=== PATIENT | male | born 1930 | race Caucasian/White ===

== ENCOUNTER 2017-03-27 16:57 | Inpatient (IN) ==
[2017-03-27 17:55] LABS: Basophils % 0.2 %; Eosinophils % 1.4 %; Mean Corpuscular HGB Conc 29.8 g/dL (31.6-35.5); Mean Platelet Volume 10.2 fL (9.4-12.4)
[2017-03-27 17:56] LABS: Eosinophils # 0.1 K/mcL (0.0-0.6); Hematocrit 18.1 % (37.5-50.1); Lymphocytes # 1.3 K/mcL (0.6-4.6); Lymphocytes % 13.4 %; Mean Corpuscular Hemoglobin 29.5 pg (28.0-33.3); Mean Corpuscular Volume 98.9 fL (83.0-100.0); Monocytes # 0.5 K/mcL (0.0-1.3); Neutrophils # 7.7 K/mcL (1.6-8.9); Nucleated Red Blood Cells 0.3 /100 WBC (0); Platelet Count 147 K/mcL (140-400); Red Blood Count 1.83 M/mcL (4.19-5.50); Red Cell Distribution Width 23.9 % (11.5-14.5)
[2017-03-27 17:58] LABS: Activated Partial Thrombo Time 46.9 Seconds (26.0-36.0)
[2017-03-27 18:04] LABS: Potassium 4.6 mEq/L (3.5-4.5)
[2017-03-27 18:09] LABS: INR 4.6; Prothrombin Time 51.2 Seconds (9.4-12.1)
[2017-03-27 18:10] LABS: Hemoglobin 5.4 g/dL (12.9-16.9)
[2017-03-27 18:33] LABS: Anisocytosis 2+ (Not Present); Hypochromasia Present (Not Present); Ovalocytes 1+ (Not Present); Platelet Estimate Normal (Normal)
[2017-03-27] MEDS ORDERED: Pantoprazole 40 MG VIAL IVP ONE (18:34)
--- NOTE | 2017-03-27 18:56 | Emergency Department Note ---
Disposition Clinical Impression: GI bleeding, Melena, Anemia Disposition: Admitted As Inpatient Condition: Fair [facility] Care Provider[facility] - Time of Disposition: 18:45 GI Bleed HPI - General Chief complaint: ED GI Bleed Stated complaint: Lower GI Time Seen by Provider: 03/27/17 17:03 Source: EMS Mode of arrival: EMS Limitations: no limitations Nursing Notes Reviewed: Yes Vital Signs Reviewed: Yes - History of Present Illness HPI Narrative: 87-year-old male brought to the emergency department from the [facility] for concerns of GI bleeding. Patient states he has had dark, tarry stools for the past week and a half. Patient states he felt lightheaded over the past 24 hours, falling twice yesterday but denies syncope or chest pain. CT of the head was negative at the [facility] for acute fracture or intracranial hemorrhage. Patient had occult positive stool CVA. His hemoglobin was 5.7. Last bowel movement was yesterday and was formed. No history of peptic ulcer disease in the past. Patient takes Coumadin for atrial fibrillation and had an elevated INR of 4.7. - Related Data Home Medications Medication Instructions Recorded Confirmed Hydrocodone/Acetaminophen [[place] 1 tab PO Q6H PRN 03/26/15 02/22/17 5-325 Tablet] Ketoconazole 2% CRM [Nizoral Cream] 1 appl TP BID 03/26/15 02/22/17 Melatonin 3 mg PO HS PRN 03/26/15 02/22/17 Multivitamin [Multi-Day Vitamins] 1 tab PO BID 03/26/15 02/22/17 Omeprazole [PriLOSEC] 20 mg PO DAILY 03/26/15 02/22/17 Terazosin [Hytrin] 5 mg PO HS 03/26/15 02/22/17 TraZODone 100 mg PO HS 03/26/15 02/22/17 Venlafaxine [Effexor] 37.5 mg PO DAILY 03/26/15 02/22/17 Warfarin [Coumadin] 2.5 mg PO SUTUTH 03/26/15 02/22/17 Warfarin [Coumadin] 5 mg PO MOWEFRSA 03/26/15 02/22/17 Allopurinol [Zyloprim 100 MG] 200 mg PO DAILY 02/21/17 02/22/17 Carvedilol [Coreg] 6.25 mg PO BID 02/21/17 02/22/17 Cetirizine HCl [All Day Allergy] 5 mg PO DAILY PRN 02/21/17 02/22/17 Cholecalciferol (D-3) [Vitamin D] 1,000 unit PO DAILY 02/21/17 02/22/17 Dextran 70/Hypromellose 1 drop BOTH EYES DAILY 02/21/17 02/22/17 [Artificial Tears] Docusate [Colace] 100 mg PO BID PRN 02/21/17 02/22/17 Finasteride [Proscar] 5 mg PO DAILY 02/21/17 02/22/17 Furosemide [Lasix] 40 mg PO BID 02/21/17 02/22/17 Gabapentin [Neurontin] 300 mg PO BID 02/21/17 02/22/17 Gabapentin [Neurontin] 600 mg PO HS 02/21/17 02/22/17 Petrolatum,White [Aloe [place]] 1 appl TP TID 02/21/17 02/22/17 Spironolactone [Aldactone] 12.5 mg PO DAILY 02/21/17 02/22/17 Leuprolide Acetate [Lupron Depot] 22.5 mg IM Q3M 02/22/17 02/22/17 Meclizine HCl [Verticalm] 25 mg PO TID PRN 02/22/17 02/22/17 Previous Rx's Medication Instructions Recorded Ipratropium/Albuterol Sulfate 4 gm IH QID #1 aer.w.adap 02/26/17 [Combivent Respimat Inhal [place]] Allergies Allergy/AdvReac Type Severity Reaction Status Date / Time Sulfa (Sulfonamide Allergy Rash Verified 02/21/17 21:52 Antibiotics) All systems ED: reviewed and negative except as stated. Review of Systems: As Per HPI Constitutional: Denies: fever, chills, weakness Cardiovascular: Denies: chest pain, palpitations, dyspnea on exertion Respiratory: Denies: cough, dyspnea, wheezes Gastrointestinal: Reports: melena. Denies: abdominal pain, nausea, vomiting Past Medical History - Past Medical History Attestation: Yes The following information was validated with the patient. Source: patient Medical history: Reports: arthritis, atrial fibrillation, CHF, COPD, GERD, hyperlipidemia, hypertension, malignancy, other Psychiatric history: Reports: anxiety, depression - Social History Smoking Status: Never smoker Smokeless Tobacco Status: No Alcohol use: Reports: occasionally Drug use: Reports: none Physical Exam General: Alert and in no acute distress Skin: Warm, dry, intact Head: Normocephalic and atraumatic Neck: Supple, trachea midline and no tenderness Cardiovascular: RRR, no murmur, normal perfusion Respiratory: CTAB, no wheezing, cough, or respiratory distress Musculoskeletal: Normal strength, no tenderness, swelling or deformity GI: Soft, nontender, nondistended. Bowel sounds present Rectal exam per [facility] chart shows occult positive stool with melena. Neuro: A&O to person, place, time and situation. No focal deficits noted on exam Psychiatric: cooperative and appropriate mood and affect. - General General appearance: alert Course Vital Signs Temperature 97.6 F 03/27/17 17:02 Pulse Rate 86 03/27/17 17:02 Respiratory Rate 20 03/27/17 17:02 Blood Pressure 147/67 03/27/17 17:02 O2 Sat by Pulse Oximetry 94 03/27/17 17:02 Temperature 97.6 F 03/27/17 17:02 Pulse Rate 86 03/27/17 17:02 Respiratory Rate 20 03/27/17 17:02 Blood Pressure 147/67 03/27/17 17:02 O2 Sat by Pulse Oximetry 94 03/27/17 17:02 Oxygen Delivery Oxygen Delivery Room Air GI Bleed - MDM Narrative Medical decision making narrative: Patient vital signs are stable in the emergency department. Patient is likely stable for a bed in a stepdown unit. Patient given Protonix in the emergency department. Patient admitted for further care and evaluation. 3 units of packed red blood cells are ordered for transfusion. - Medical Records Medical records reviewed: Yes I reviewed the patient's medical records. - Lab Data Lab results reviewed: Yes I reviewed the patient's lab results. Result diagrams: 03/27/17 17:45 03/27/17 17:45 Lab Results 03/27/17 03/27/17 03/27/17 Range/Units 17:45 17:45 17:45 WBC 9.7 (4.3-11.1) K/mcL RBC 1.83 L (4.19-5.50) M/mcL Hgb 5.4 L* (12.9-16.9) g/dL Hct 18.1 L (37.5-50.1) % MCV 98.9 D (83.0-100.0) fL MCH 29.5 (28.0-33.3) pg MCHC 29.8 L (31.6-35.5) g/dL RDW 23.9 H (11.5-14.5) % Plt Count 147 (140-400) K/mcL MPV 10.2 (9.4-12.4) fL Immature Gran % 1.0 (0-4) % Seg Neutrophils % 79.0 % Lymphocytes % 13.4 % Monocytes % 5.0 % Eosinophils % 1.4 % Basophils % 0.2 % Neutrophils # 7.7 (1.6-8.9) K/mcL Lymphocytes # 1.3 (0.6-4.6) K/mcL Monocytes # 0.5 (0.0-1.3) K/mcL Eosinophils # 0.1 (0.0-0.6) K/mcL Basophils # 0.0 (0.0-0.2) K/mcL Nucleated RBCs/100 WBC 0.3 H (0) /100 WBC Platelet Estimate Normal (Normal) Hypochromasia Present A (Not Present) Anisocytosis 2+ A (Not Present) Ovalocytes 1+ A (Not Present) PT 51.2 H* (9.4-12.1) Seconds INR 4.6 H* APTT 46.9 H (26.0-36.0) Seconds Sodium 147 H (136-145) mEq/L Potassium 4.6 H (3.5-4.5) mEq/L Chloride 103 (98-109) mEq/L Carbon Dioxide 38 H (19-29) mEq/L BUN 90 H (8-26) mg/dL Creatinine 1.98 H (0.72-1.25) mg/dL Est GFR ( Amer) 39 L (> 60) Est GFR (Non-Af Amer) 32 L (> 60) BUN/Creatinine Ratio 45 H (6-26) Glucose 132 H (70-99) mg/dL Calculated Osmolality 333 H (280-300) Calcium 9.0 (8.6-10.8) mg/dL Lipase 44 (8-78) Units/L Blood Type Antibody Screen Crossmatch 03/27/17 Range/Units 17:45 WBC (4.3-11.1) K/mcL RBC (4.19-5.50) M/mcL Hgb (12.9-16.9) g/dL Hct (37.5-50.1) % MCV (83.0-100.0) fL MCH (28.0-33.3) pg MCHC (31.6-35.5) g/dL RDW (11.5-14.5) % Plt Count (140-400) K/mcL MPV (9.4-12.4) fL Immature Gran % (0-4) % Seg Neutrophils % % Lymphocytes % % Monocytes % % Eosinophils % % Basophils % % Neutrophils # (1.6-8.9) K/mcL Lymphocytes # (0.6-4.6) K/mcL Monocytes # (0.0-1.3) K/mcL Eosinophils # (0.0-0.6) K/mcL Basophils # (0.0-0.2) K/mcL Nucleated RBCs/100 WBC (0) /100 WBC Platelet Estimate (Normal) Hypochromasia (Not Present) Anisocytosis (Not Present) Ovalocytes (Not Present) PT (9.4-12.1) Seconds INR APTT (26.0-36.0) Seconds Sodium (136-145) mEq/L Potassium (3.5-4.5) mEq/L Chloride (98-109) mEq/L Carbon Dioxide (19-29) mEq/L BUN (8-26) mg/dL Creatinine (0.72-1.25) mg/dL Est GFR ( Amer) (> 60) Est GFR (Non-Af Amer) (> 60) BUN/Creatinine Ratio (6-26) Glucose (70-99) mg/dL Calculated Osmolality (280-300) Calcium (8.6-10.8) mg/dL Lipase (8-78) Units/L Blood Type A POSITIVE Antibody Screen NEGATIVE Crossmatch See Detail - Radiology Data Radiology results reviewed: Yes I reviewed the patient's radiology results. - EKG Data EKG attestation: Yes I reviewed and interpreted this EKG. EKG results narrative: 87 atrial fibrillation with PVC without evidence of STEMI.
[2017-03-27] MEDS: Pantoprazole 40 MG in 0.9 % Sodium Chloride Mini Bag 100 ML IVC SCH (18:59)
--- NOTE | 2017-03-27 19:37 | Internal Med History&Physical ---
<Mic Bermudez - Last Filed: 03/28/17 02:04> Date of Encounter: 03/27/17 Time of Encounter: 19:37 Assessment and Plan (1) Acute blood loss anemia Current visit: Yes Status: Acute HGB 5.7 --> 5.4 Patient currently receiving 3 units PRBC, FFP, Vitamin K Repeat H&H q6h 2 large bore IVs in place CT abd/plv today at the [facility] revealed no retroperitoneal hematoma Continue blood products prn Monitor vital signs Monitor for signs of fluid overload due to underlying CHF (2) Melena Current visit: Yes Status: Acute Black tarry stool for 5 days FFP, Vit K given to reverse Coumadin He reports last colonoscopy was normal 1 year ago andis unable to remember the results from his previous EGD. Records requested from [facility] GI consulted (3) Bleeding on Coumadin Current visit: Yes Status: Acute Supratherapeutic INR 4.6 Hold Coumadin due to GI bleed Vit K and FFP given Repeat INR in AM (4) Afib Current visit: No Status: Chronic CHADS-VASc Score 4 ATRIA Bleeding Risk Score 9 indicating 5.8% Annual Risk of Hemorrhage on Coumadin Discuss with patient the high risk of bleeding from frequent falls while taking Coumadin vs benefits of further anticoagulation to prevent thromboembolism Alternatives to or stopping warfarin should be strongly considered Qualifiers: Atrial fibrillation type: permanent Qualified Code(s): I48.2 - Chronic atrial fibrillation (5) Falls frequently Current visit: Yes Status: Acute Discuss with patient the risks of bleeding from frequent falls while taking Coumadin vs benefits of further anticoagulation to prevent thromboembolism PT/OT consulted (6) CHF (congestive heart failure) Current visit: Yes Status: Chronic BNP 2641 on 03/16/17 CXR revealed continued basilar airspace disease, mainly on the right, decreased when compared to the previous exam, atelectasis versus pneumonia versus edema. CT abd/plv today at the [facility] revealed bilateral pleural effusions, with dependent consolidating at the right lung base, cardiomegaly with small pericardial effusion, and findings suggestive of cirrhosis Echo pending Repeat BNP pending Lasix 40mg BID IV Monitor for signs of fluid overload COntinue blood products prn Continue home meds Qualifiers: Congestive heart failure type: unspecified congestive heart failure type Congestive heart failure chronicity: chronic Qualified Code(s): I50.9 - Heart failure, unspecified (7) Chronic respiratory failure with hypoxia Current visit: No Status: Chronic Patient wears 3L continuous home O2 (8) COPD (chronic obstructive pulmonary disease) Current visit: No Status: Chronic Patient wears 3L continuous home O2 Continue home meds Qualifiers: COPD type: unspecified COPD Qualified Code(s): J44.9 - Chronic obstructive pulmonary disease, unspecified (9) HTN (hypertension) Current visit: Yes Status: Chronic Continue home meds Qualifiers: Hypertension type: unspecified Qualified Code(s): I10 - Essential (primary ) hypertension (10) CKD (chronic kidney disease) stage 3, GFR 30-59 ml/min Current visit: No Status: Chronic Continue to monitor Gentle hydration given h/o CHF (11) Prostate ca Current visit: No Status: Chronic Continue to monitor (12) DVT prophylaxis Current visit: Yes Status: Acute SCDs Internal Medicine - H&P: HPI Chief complaint: Black stool Admitted From: Home History of present illness: Mr. Neumann is a 87 year old male with a PMH of atrial fibrillation on Coumadin, CHF, COPD with home O2 dependence, GERD, hypertension, and prostate cancer [facility] H[facility] 5.7 and black tarry stools for the past 5 days. Patient also reports feeling weak, lightheaded, and having increased falls at home for the past 3 days. Patient reports mild SOB, leg edema, positive stool occult blood test in the ED, and an elevated INR of 4.7 today. He reports last colonoscopy was normal 1 year ago andis unable to remember the results from his previous EGD. CT abd/plv today at the [facility] revealed bilateral pleural effusions, with dependent consolidating at the right lung base, cardiomegaly with small pericardial effusion, and findings suggestive of cirrhosis. CT brain was negative. Patient denies fever, chills, CP, cough, abd pain, N/V/D/C, BRBPR, worsening leg edema, or previous blood transfusions Past Med Surg Social Fam HX - Past Medical History Medical history: arthritis, atrial fibrillation, CHF, COPD, GERD, hyperlipidemia , hypertension, malignancy, other Psychiatric history: anxiety, depression - Past Surgical History Surgical History: hip replacement (left), knee replacement (bilateral), orthopedic, other (back) - Social History Smoking Status: Never smoker Smokeless Tobacco Status: No Alcohol use: occasionally Drug use: none Current living situation: Home, With Family - Family History Mother Living Status: Hx Family Cardiac Disorders: Yes (AICD) Father Hx Family Cancer: Yes (Lung) Internal Medicine - H&P: Meds Hydrocodone/Acetaminophen [[place] 5-325 Tablet] 1 tab PO BID PRN 03/26/15 [ History] Ketoconazole 2% CRM [Nizoral Cream] 1 appl TP BID PRN 03/26/15 [History] Melatonin 3 mg PO HS 03/26/15 [History] Omeprazole [PriLOSEC] 20 mg PO HS 03/26/15 [History] Terazosin [Hytrin] 5 mg PO HS 03/26/15 [History] TraZODone 100 mg PO HS 03/26/15 [History] Allopurinol [Zyloprim 100 MG] 200 mg PO DAILY 02/21/17 [History] Carvedilol [Coreg] 6.25 mg PO BID 02/21/17 [History] Cholecalciferol (D-3) [Vitamin D] 1,000 unit PO DAILY 02/21/17 [History] Dextran 70/Hypromellose [Artificial Tears] 1 drop BOTH EYES DAILY PRN 02/21/17 [ History] Docusate [Colace] 100 mg PO BID PRN 02/21/17 [History] Furosemide [Lasix] 40 mg PO BID 02/21/17 [History] Gabapentin [Neurontin] 600 mg PO HS 02/21/17 [History] Petrolatum,White [Aloe [place]] 1 appl TP TID PRN 02/21/17 [History] Spironolactone [Aldactone] 12.5 mg PO DAILY 02/21/17 [History] Leuprolide Acetate [Lupron Depot] 22.5 mg IM [id number] 02/22/17 [History] Meclizine HCl [Verticalm] 25 mg PO TID PRN 02/22/17 [History] Acetaminophen [Tylenol] 1,000 mg PO BID PRN 03/27/17 [History] Ferrous Gluconate 324 mg PO BID 03/27/17 [History] Ipratropium/Albuterol Sulfate [Combivent Respimat Inhal [place]] 1 puff IH QID PRN 03/27/17 [History] Venlafaxine XR (24 HR) [Effexor XR] 37.5 mg PO DAILY 03/27/17 [History] Vit C/E/Zn/Coppr/Lutein/Zeaxan [Preservision [place] 2 Softgel] 1 cap PO BID 03/27 [History] Warfarin [Coumadin] 2.5 mg PO SUTUTH 03/27/17 [History] Warfarin [Coumadin] 5 mg PO MOWEFRSA 03/27/17 [History] 3 Allergy/AdvReac Type Severity Reaction Status Date / Time Sulfa (Sulfonamide Allergy Rash Verified 02/21/17 21:52 Antibiotics) All Systems PM: A 10-system review of systems was performed and is negative for pertinent findings except as documented above in the HPI. - Constitutional Constitutional: fatigue, falls, lethargy, weakness, no anorexia, no chills, no fever(s), no weight gain, no weight loss - EENT Eyes: no change in vision Nose, mouth and throat: no post-nasal drip - Cardiovascular Cardiovascular ROS IM: no chest pain, no palpitations - Respiratory Respiratory: dyspnea, no cough, no wheezing, no chest congestion, no excessive phlegm production - Gastrointestinal Gastrointestinal: melena, no abdominal pain, no bloating, no coffee ground emesis, no constipation, no cramping, no diarrhea, no hematemesis, no hematochezia, no vomiting - Genitourinary Genitourinary ROS male: no dysuria, no urinary frequency, no urinary urgency - Musculoskeletal Musculoskeletal ROS IM: no back pain, no limited range of motion, no numbness, no tingling - Integumentary Integumentary IM: new lesions, unusual bruising, no erythema, no rash - Neurological Neurological ROS: weakness, no confusion, no numbness, no tingling - Psychiatric Psychiatric: no anxiety, no depression - Endocrine Endocrine IM: no polydipsia, no polyphagia, no polyuria - Hematologic/Lymphatic Hematologic/Lymphatic: easy bruising, no easy bleeding - Constitutional Vitals: Temp Pulse Resp BP Pulse Ox 97.6 F 86 20 147/67 94 03/27/17 17:02 03/27/17 17:02 03/27/17 17:02 03/27/17 17:02 03/27/17 17:02 General appearance: Present: cooperative, A&O X 3, pleasant, no acute distress, answers questions appropriately Exam: pale, lethargic - Head Head exam: Present: atraumatic, normal inspection, normocephalic - Eye Eye exam: Present: EOMI, PERRL - ENT ENT exam: Present: mucous membranes dry, normal oropharynx - Neck Neck exam general surgery: Present: normal inspection, supple. Absent: tenderness - Respiratory Respiratory exam: Present: decreased breath sounds (bibasilar). Absent: rales, wheezes - Cardiovascular Cardiovascular exam: Present: irregular rhythm, +S1, +S2, systolic murmur - GI/Abdominal GI/Abdominal exam: Present: normal bowel sounds, soft. Absent: distended, guarding, tenderness - Extremities Exam Extremities exam: Present: full ROM, pedal edema (2+), warm. Absent: tenderness - Back Exam Back exam: Present: normal inspection. Absent: paraspinal tenderness, tenderness - Neurological Exam Neurological exam: Present: alert, oriented X3, speech deficit. Absent: no focal deficits - Psychiatric Psychiatric exam: Present: normal affect, normal mood - Skin Skin exam: Present: dry, pallor, warm Additional comments: 1x2cm black lesion left forearm, multiple ecchymosis bilateral upper extremities , no active bleeding - Expanded Skin Exam Type of lesion: Present: abrasion Internal Med - H&P Results - Labs CBC & Chem 7: 03/27/17 17:45 03/27/17 17:45 Labs: Short CBC 03/27/17 Range/Units 17:45 WBC 9.7 (4.3-11.1) K/mcL Hgb 5.4 L* (12.9-16.9) g/dL Hct 18.1 L (37.5-50.1) % Plt Count 147 (140-400) K/mcL Neutrophils # 7.7 (1.6-8.9) K/mcL BMP 03/27/17 17:45 Sodium 147 H Potassium 4.6 H Chloride 103 Carbon Dioxide 38 H BUN 90 H Creatinine 1.98 H Glucose 132 H Calcium 9.0 - EKG Data -: EKG Interpreted by Myself Rate: tachycardia (A-fib HR 87, with PVC, left axis deviation, no STEMI) - EKG Data Prior EKG available for review: yes When compared to previous EKG: there is no significant change - Impressions ITS Impressions CT abd/plv today at the [facility] revealed bilateral pleural effusions, with dependent consolidatin at the right lung base, cardiomegaly with small pericardial effusion, and findings suggestive of cirrhosis. CT brain was negative. Chest X-Ray 03/27/17 17:24 IMPRESSION: Continued basilar airspace disease, mainly on the right, decreased when compared to the previous exam, atelectasis versus pneumonia versus edema. D/ / Pepe Valadez MD / Pepe Valadez MD Interpreting Provider: Pepe Valadez MD <Benny Gilmore - Last Filed: 03/28/17 02:59> Date of Encounter: 03/27/17 Internal Medicine - H&P: HPI History of present illness: Mr. Neumann is a 87 year old male All Systems PM: A 10-system review of systems was performed and is negative for pertinent findings except as documented above in the HPI. - Constitutional Vitals: Temp Pulse Resp BP Pulse Ox 97.8 F 85 18 146/55 98 03/28/17 02:21 03/28/17 02:21 03/28/17 02:21 03/28/17 02:21 03/28/17 02:21 Internal Med - H&P Results - Labs CBC & Chem 7: 03/28/17 02:31 03/27/17 17:45 Labs: Short CBC 03/28/17 Range/Units 02:31 WBC 9.2 (4.3-11.1) K/mcL Hgb 6.3 L (12.9-16.9) g/dL Hct 20.2 L (37.5-50.1) % Plt Count 132 L (140-400) K/mcL Neutrophils # 7.1 (1.6-8.9) K/mcL - Attending Attestation I have independently and personally seen and examined the patient and discussed the plan was resident. Patient is presented with melena while he is on Coumadin. His INR is 4.7 and his hemoglobin is 5.4. We will reverse his INR with the help of FFP and vitamin K and plan to give him 3 units PRBC and repeat hemoglobin in the morning. GI consult will be obtained. Plan discussed with patient. Chest x-ray shows possible CHF therefore Lasix was started. There is some consolidation in the lungs therefore I will add Zosyn. Once CHF is resolved would recommend to repeat chest x-ray and see if there is any need for IV Zosyn.
[2017-03-27] MEDS ORDERED: 0.9 % Sodium Chloride 250 ML ONE ×2 (20:00→23:07)
[2017-03-27] MEDS ORDERED: Ondansetron 4 MG/2 ML VIAL IVP PRN (22:00)
[2017-03-27] MEDS ORDERED: Naloxone 0.4 MG/ML INJ IVP PRN (22:00)
[2017-03-27] MEDS ORDERED: *HR* HYDROcodone/Acet 5/325 mg TABLET PO PRN (22:06)
[2017-03-27] MEDS ORDERED: (Ipratropium/Albuterol Sulfate [Combivent Respimat In) IH PRN (22:06)
[2017-03-27] MEDS: traZODone 50 MG TABLET PO SCH (23:20)
[2017-03-28 02:42] LABS: Basophils % 0.2 %; Eosinophils # 0.2 K/mcL (0.0-0.6); Eosinophils % 2.3 %; Hematocrit 20.2 % (37.5-50.1); Hemoglobin 6.3 g/dL (12.9-16.9); Immature Granulocytes % 0.9 % (0-4); Lymphocytes # 1.3 K/mcL (0.6-4.6); Lymphocytes % 13.9 %; Mean Corpuscular HGB Conc 31.2 g/dL (31.6-35.5); Mean Corpuscular Hemoglobin 29.9 pg (28.0-33.3); Mean Corpuscular Volume 95.7 fL (83.0-100.0); Monocytes # 0.5 K/mcL (0.0-1.3); Monocytes % 5.4 %; Neutrophils # 7.1 K/mcL (1.6-8.9); Nucleated Red Blood Cells 0.3 /100 WBC (0); Platelet Count 132 K/mcL (140-400); Red Blood Count 2.11 M/mcL (4.19-5.50); Red Cell Distribution Width 22.6 % (11.5-14.5); Segmented Neutrophils % 77.3 %
[2017-03-28 02:54] LABS: Magnesium 2.3 mg/dL (1.6-2.6); Phosphorous 3.2 mg/dL (2.3-4.7)
[2017-03-28 02:55] LABS: INR 3.4; Prothrombin Time 37.7 Seconds (9.4-12.1)
[2017-03-28 02:57] LABS: Albumin 2.9 g/dL (3.5-5.0); Albumin/Globulin Ratio 1.1 (1.1-2.2); Bilirubin,Total 0.4 mg/dL (0.2-1.2); Calcium 8.8 mg/dL (8.6-10.8); Globulin 2.7 g/dL (2.4-3.5); Potassium 4.2 mEq/L (3.5-4.5); Total Protein 5.6 g/dL (6.0-8.3)
[2017-03-28 02:58] LABS: Activated Partial Thrombo Time 43.7 Seconds (26.0-36.0)
[2017-03-28] MEDS ORDERED: Piperacillin/Tazobactam 3.375 GM in D5% in Water (Mini-Bag+) 100 ML IVPB SCH (03:30)
[2017-03-28] MEDS ORDERED: 0.9 % Sodium Chloride 250 ML ONE ×3 (03:36→11:14)
[2017-03-28] MEDS: Pantoprazole 40 MG in 0.9 % Sodium Chloride Mini Bag 100 ML IVC SCH ×4 (06:12→20:33)
[2017-03-28] MEDS: Cholecalciferol (D-3) 1,000 UNIT TABLET PO SCH (08:30)
[2017-03-28] MEDS: Furosemide 40 MG/4 ML VIAL IVP SCH ×2 (08:30→20:35)
[2017-03-28] MEDS: Spironolactone 25 MG TABLET PO SCH (08:31)
[2017-03-28] MEDS: Venlafaxine XR (24 HR) 37.5 MG CAP.ER.24H PO SCH (08:31)
[2017-03-28] MEDS: (Vit C/E/Zn/Coppr/Lutein/Zeaxan [Preservision Areds 2) PO SCH (08:31)
[2017-03-28] MEDS ORDERED: Artificial Tears SOLN 15 ML BOTTLE BOTH EYES PRN (09:00)
[2017-03-28 12:14] LABS: Basophils % 0.1 %; Eosinophils # 0.1 K/mcL (0.0-0.6); Eosinophils % 1.6 %; Hematocrit 22.4 % (37.5-50.1); Hemoglobin 7.2 g/dL (12.9-16.9); Immature Granulocytes % 0.7 % (0-4); Immature Platelets 2.8 % (1.1-6.1); Lymphocytes # 1.1 K/mcL (0.6-4.6); Lymphocytes % 12.2 %; Mean Corpuscular HGB Conc 32.1 g/dL (31.6-35.5); Mean Corpuscular Hemoglobin 30.9 pg (28.0-33.3); Mean Corpuscular Volume 96.1 fL (83.0-100.0); Mean Platelet Volume 10.5 fL (9.4-12.4); Monocytes # 0.5 K/mcL (0.0-1.3); Monocytes % 5.5 %; Nucleated Red Blood Cells 0.3 /100 WBC (0); Platelet Count 148 K/mcL (140-400); Red Blood Count 2.33 M/mcL (4.19-5.50); Segmented Neutrophils % 79.9 %
[2017-03-28 12:42] LABS: Anisocytosis 2+ (Not Present); Hypochromasia Present (Not Present); Microcytosis Present (Not Present); Platelet Estimate Normal (Normal)
--- NOTE | 2017-03-28 13:16 | Internal Med Progress Note ---
Date of Encounter: 03/28/17 Time of Encounter: 13:10 - Assessment and plan (1) Acute blood loss anemia Current Visit: Yes Status: Acute Assessment and plan: Secondary to GI bleed s/p 3unit PRBC transfusion clinical reports of doing better compared previous day repeat H&H within acceptable range surgery consultation requested with Dr. Lai will continue IV PPI will closely monitor H&H repeat H&H this evening (2) Melena Current Visit: Yes Status: Acute Assessment and plan: plan as listed above awaiting INR reversal for any surgical intervention (3) Pneumonia Current Visit: Yes Status: Acute Assessment and plan: continue IV abx f/u blood cultures Qualifiers: Pneumonia type: due to unspecified organism Laterality: right Lung location: lower lobe of lung Qualified Code(s): J18.1 - Lobar pneumonia, unspecified organism (4) CHF (congestive heart failure) Current Visit: Yes Status: Chronic Assessment and plan: b/l pitting edema given the volume pt is receiving with blood transfusions (PrBC and FFP), will continue IV diuresis will closely monitor for volume overload Qualifiers: Congestive heart failure type: unspecified congestive heart failure type Congestive heart failure chronicity: chronic Qualified Code(s): I50.9 - Heart failure, unspecified (5) HTN (hypertension) Current Visit: Yes Status: Chronic Assessment and plan: BP within acceptable range continue to monitor Qualifiers: Hypertension type: unspecified Qualified Code(s): I10 - Essential (primary ) hypertension (6) Afib Current Visit: No Status: Chronic Assessment and plan: Rate controlled with Carvedilol holding anticoagulation due to GI bleed continue tele monitoring Qualifiers: Atrial fibrillation type: permanent Qualified Code(s): I48.2 - Chronic atrial fibrillation (7) CKD (chronic kidney disease) stage 3, GFR 30-59 ml/min Current Visit: No Status: Chronic Assessment and plan: Renal function at baseline continue to monitor (8) COPD (chronic obstructive pulmonary disease) Current Visit: No Status: Chronic Assessment and plan: not in acute exacerbation continue home meds Qualifiers: COPD type: unspecified COPD Qualified Code(s): J44.9 - Chronic obstructive pulmonary disease, unspecified (9) DVT prophylaxis Current Visit: Yes Status: Acute Assessment and plan: SCD - Subjective Interval history: Patient seen and examined with family present at bedside. Resting in chair and reports of feeling better compared to previous day. Reported of have one bowel movement this morning with black tarry stool. - Constitutional Vitals: Temp Pulse Resp BP Pulse Ox 97.6 F 72 18 146/66 98 03/28/17 11:34 03/28/17 11:34 03/28/17 11:34 03/28/17 11:34 03/28/17 11:34 General appearance: Present: cooperative, A&O X 3, pleasant, no acute distress, answers questions appropriately - Head Head exam: Present: atraumatic, normocephalic - Eye Eye exam: Present: conjuntiva pink, sclera anicteric - Respiratory Respiratory exam: Absent: accessory muscle use, rales, rhonchi, wheezes (coarse breath sounds) - Cardiovascular Cardiovascular exam: Present: RRR, +S1, +S2. Absent: diastolic murmur, gallop, rubs, systolic murmur - GI/Abdominal GI/Abdominal exam: Present: normal bowel sounds, soft, no peritoneal signs. Absent: distended, tenderness - Extremities Exam Extremities exam: Present: pedal edema, warm, radial pulses palpable and symmetrical. Absent: calf tenderness - Neurological Exam Neurological exam: Present: alert, oriented X3 - Psychiatric Psychiatric exam: Present: normal affect, normal mood Internal Medicine: Result - Labs CBC & Chem 7: 03/28/17 12:02 03/28/17 02:31 Labs: Short CBC 03/28/17 Range/Units 12:02 WBC 8.7 (4.3-11.1) K/mcL Hgb 7.2 L (12.9-16.9) g/dL Hct 22.4 L (37.5-50.1) % Plt Count 148 (140-400) K/mcL Neutrophils # 7.0 (1.6-8.9) K/mcL - ABG Interpretation ABG results: PT/INR, D-dimer PT 37.7 Seconds (9.4-12.1) H 03/28/17 02:31 Consult Discharge Plan - Plan [facility]errals[facility]Primary Care Provider[facility] -
--- NOTE | 2017-03-28 13:58 | General Surgery Consult Note ---
Date of Encounter: 03/28/17 Time of Encounter: 13:49 Assessment and Plan (1) Melena Current Visit: Yes Status: Acute I explained to the patient that given his history of fibrillation and supratherapeutic INR I do think that it is important that his INR be reversed before considering for a endoscopy procedure. I will continue to follow his INR and if it is less than 1.8 then I will consider performing an EGD tomorrow. I do not think he requires a colonoscopy due to the black tarry nature of his stool. Additionally, I will ask the staff to request a copy of the EGD and colonoscopy report from 2015. Discussed with the patient and he agrees to the above plan. History of Present Illness Consult date: 03/28/17 Reason for consult: other (Tarry stool) Requesting physician: Benny Gilmore History of present illness: The patient is an 87-year-old male with a past medical history significant for atrial fibrillation, hypertension, small cell carcinoma, and arthritis who presents to [facility] secondary to black tarry stools. He denies any abdominal pain and denies any nausea or vomiting. He denies any heartburn or reflux symptoms and states that he normally has a bowel movement once a day. Over the past week he has been having a bowel movement 2-3 times per day and has noted dark or black colored stools. He has not had any abdominal pain symptoms whatsoever. He states that his last EGD and colonoscopy was last year at the [facility] and I been asked to evaluate the patient for the possible need for a endoscopy procedure. Past Med Surg Social Fam HX - Past Medical History Medical history: arthritis, atrial fibrillation, CHF, COPD, GERD, hyperlipidemia , hypertension, malignancy, other Psychiatric history: anxiety, depression - Past Surgical History Surgical History: hip replacement (left), knee replacement (bilateral), orthopedic, other (back) - Social History Smoking Status: Never smoker Smokeless Tobacco Status: No Alcohol use: occasionally Drug use: none - Family History Mother Living Status: Hx Family Cardiac Disorders: Yes (AICD) Father Hx Family Cancer: Yes (Lung) Medications and Allergies Hydrocodone/Acetaminophen [[place] 5-325 Tablet] 1 tab PO BID PRN 03/26/15 [ History] Ketoconazole 2% CRM [Nizoral Cream] 1 appl TP BID PRN 03/26/15 [History] Melatonin 3 mg PO HS 03/26/15 [History] Omeprazole [PriLOSEC] 20 mg PO HS 03/26/15 [History] Terazosin [Hytrin] 5 mg PO HS 03/26/15 [History] TraZODone 100 mg PO HS 03/26/15 [History] Allopurinol [Zyloprim 100 MG] 200 mg PO DAILY 02/21/17 [History] Carvedilol [Coreg] 6.25 mg PO BID 02/21/17 [History] Cholecalciferol (D-3) [Vitamin D] 1,000 unit PO DAILY 02/21/17 [History] Dextran 70/Hypromellose [Artificial Tears] 1 drop BOTH EYES DAILY PRN 02/21/17 [ History] Docusate [Colace] 100 mg PO BID PRN 02/21/17 [History] Furosemide [Lasix] 40 mg PO BID 02/21/17 [History] Gabapentin [Neurontin] 600 mg PO HS 02/21/17 [History] Petrolatum,White [Aloe [place]] 1 appl TP TID PRN 02/21/17 [History] Spironolactone [Aldactone] 12.5 mg PO DAILY 02/21/17 [History] Leuprolide Acetate [Lupron Depot] 22.5 mg IM [id number] 02/22/17 [History] Meclizine HCl [Verticalm] 25 mg PO TID PRN 02/22/17 [History] Acetaminophen [Tylenol] 1,000 mg PO BID PRN 03/27/17 [History] Ferrous Gluconate 324 mg PO BID 03/27/17 [History] Ipratropium/Albuterol Sulfate [Combivent Respimat Inhal [place]] 1 puff IH QID PRN 03/27/17 [History] Venlafaxine XR (24 HR) [Effexor XR] 37.5 mg PO DAILY 03/27/17 [History] Vit C/E/Zn/Coppr/Lutein/Zeaxan [Preservision Areds 2 Softgel] 1 cap PO BID 03/27 [History] Warfarin [Coumadin] 2.5 mg PO SUTUTH 03/27/17 [History] Warfarin [Coumadin] 5 mg PO MOWEFRSA 03/27/17 [History] 3 Allergy/AdvReac Type Severity Reaction Status Date / Time Sulfa (Sulfonamide Allergy Rash Verified 02/21/17 21:52 Antibiotics) Review of Systems All systems PM: reviewed and no additional remarkable complaints except as stated All systems PM: A 10-system review of systems was performed and is negative for pertinent findings except as documented above in the HPI. General Surgery Exam Initial Vital Signs Temp Pulse Resp BP Pulse Ox 97.6 F 86 20 147/67 94 03/27/17 17:02 03/27/17 17:02 03/27/17 17:02 03/27/17 17:02 03/27/17 17:02 - Eyes PERRL, normal ocular movement - Respiratory normal expansion, normal respiratory effort - Cardiovascular Cardiovascular exam: Present: RRR, no murmurs/rubs/gallops - Abdomen Abdomen general surgery: Present: soft, non tender (obese, no pain with palpation) - Neurologic Present: CN 2-12 grossly intact - Psychiatric Psychiatric general surgery: Present: A&Ox3, oriented to person, oriented to place, oriented to time Exam Initial Vital Signs Temp Pulse Resp BP Pulse Ox 97.6 F 86 20 147/67 94 03/27/17 17:02 03/27/17 17:02 03/27/17 17:02 03/27/17 17:02 03/27/17 17:02 Results - Labs 03/29/17 06:39 03/29/17 06:39 Abnormal lab results RBC 2.33 M/mcL (4.19-5.50) L 03/28/17 12:02 Hgb 7.2 g/dL (12.9-16.9) L 03/28/17 12:02 Hct 22.4 % (37.5-50.1) L 03/28/17 12:02 RDW 22.0 % (11.5-14.5) H 03/28/17 12:02 Nucleated RBCs/100 WBC 0.3 /100 WBC (0) H 03/28/17 12:02 Hypochromasia Present (Not Present) A 03/28/17 12:02 Anisocytosis 2+ (Not Present) A 03/28/17 12:02 Microcytosis Present (Not Present) A 03/28/17 12:02 Ovalocytes 1+ (Not Present) A 03/27/17 17:45 PT 37.7 Seconds (9.4-12.1) H 03/28/17 02:31 APTT 43.7 Seconds (26.0-36.0) H 03/28/17 02:31 Sodium 148 mEq/L (136-145) H 03/28/17 02:31 Carbon Dioxide 39 mEq/L (19-29) H 03/28/17 02:31 BUN 82 mg/dL (8-26) H 03/28/17 02:31 Creatinine 1.85 mg/dL (0.72-1.25) H 03/28/17 02:31 Est GFR ( Amer) 42 (> 60) L 03/28/17 02:31 Est GFR (Non-Af Amer) 35 (> 60) L 03/28/17 02:31 BUN/Creatinine Ratio 44 (6-26) H 03/28/17 02:31 Glucose 110 mg/dL (70-99) H 03/28/17 02:31 Calculated Osmolality 331 (280-300) H 03/28/17 02:31 B-Natriuretic Peptide 182 pg/mL (0-100) H 03/27/17 17:45 Serum Total Protein 5.6 g/dL (6.0-8.3) L 03/28/17 02:31 Albumin 2.9 g/dL (3.5-5.0) L 03/28/17 02:31 All other labs normal. Consult Discharge Plan - Plan [facility]Primary Care Provider[facility] -
[2017-03-28] MEDS ORDERED: Ipratropium/Albuterol Neb 3 ML IH PRN (14:05)
[2017-03-28 17:45] LABS: Basophils % 0.1 %; Eosinophils # 0.2 K/mcL (0.0-0.6); Eosinophils % 1.7 %; Hematocrit 22.5 % (37.5-50.1); Hemoglobin 7.1 g/dL (12.9-16.9); Immature Granulocytes % 0.5 % (0-4); Lymphocytes # 1.3 K/mcL (0.6-4.6); Lymphocytes % 13.7 %; Mean Corpuscular HGB Conc 31.6 g/dL (31.6-35.5); Mean Corpuscular Hemoglobin 30.3 pg (28.0-33.3); Mean Corpuscular Volume 96.2 fL (83.0-100.0); Mean Platelet Volume 10.3 fL (9.4-12.4); Monocytes # 0.6 K/mcL (0.0-1.3); Monocytes % 6.2 %; Neutrophils # 7.4 K/mcL (1.6-8.9); Nucleated Red Blood Cells 0.2 /100 WBC (0); Platelet Count 136 K/mcL (140-400); Red Blood Count 2.34 M/mcL (4.19-5.50); Red Cell Distribution Width 21.8 % (11.5-14.5); Segmented Neutrophils % 77.8 %
[2017-03-28 17:54] LABS: INR 1.7
[2017-03-28 19:15] LABS: Hematocrit 22.7 % (37.5-50.1); Hemoglobin 7.1 g/dL (12.9-16.9)
[2017-03-28] MEDS: Gabapentin 300 MG CAPSULE PO SCH (20:34)
[2017-03-28] MEDS: traZODone 50 MG TABLET PO SCH (20:34)
[2017-03-28] MEDS: Melatonin 3 MG TABLET PO SCH (20:35)
[2017-03-28 23:09] LABS: Basophils % 0.1 %; Eosinophils # 0.2 K/mcL (0.0-0.6); Eosinophils % 2.4 %; Hematocrit 20.1 % (37.5-50.1); Hemoglobin 6.2 g/dL (12.9-16.9); Immature Granulocytes % 1.1 % (0-4); Lymphocytes % 14.2 %; Mean Corpuscular HGB Conc 30.8 g/dL (31.6-35.5); Mean Corpuscular Hemoglobin 29.4 pg (28.0-33.3); Mean Corpuscular Volume 95.3 fL (83.0-100.0); Mean Platelet Volume 10.1 fL (9.4-12.4); Monocytes # 0.6 K/mcL (0.0-1.3); Monocytes % 7.6 %; Neutrophils # 5.4 K/mcL (1.6-8.9); Nucleated Red Blood Cells 0.4 /100 WBC (0); Platelet Count 115 K/mcL (140-400); Red Blood Count 2.11 M/mcL (4.19-5.50); Red Cell Distribution Width 21.2 % (11.5-14.5); Segmented Neutrophils % 74.6 %
[2017-03-29] MEDS: Piperacillin/Tazobactam 3.375 GM in D5% in Water (Mini-Bag+) 100 ML IVPB SCH ×3 (00:23→08:30)
[2017-03-29] MEDS: Pantoprazole 40 MG in 0.9 % Sodium Chloride Mini Bag 100 ML IVC SCH ×2 (05:34→11:48)
[2017-03-29 07:20] LABS: Basophils % 0.1 %; Eosinophils # 0.2 K/mcL (0.0-0.6); Eosinophils % 3.1 %; Hematocrit 20.8 % (37.5-50.1); Hemoglobin 6.4 g/dL (12.9-16.9); Immature Granulocytes % 0.7 % (0-4); Lymphocytes # 1.1 K/mcL (0.6-4.6); Lymphocytes % 14.4 %; Mean Corpuscular HGB Conc 30.8 g/dL (31.6-35.5); Mean Corpuscular Hemoglobin 30.2 pg (28.0-33.3); Mean Corpuscular Volume 98.1 fL (83.0-100.0); Mean Platelet Volume 10.6 fL (9.4-12.4); Monocytes # 0.5 K/mcL (0.0-1.3); Monocytes % 6.4 %; Neutrophils # 5.5 K/mcL (1.6-8.9); Nucleated Red Blood Cells 0.3 /100 WBC (0); Platelet Count 123 K/mcL (140-400); Red Blood Count 2.12 M/mcL (4.19-5.50); Red Cell Distribution Width 21.6 % (11.5-14.5); Segmented Neutrophils % 75.3 %
[2017-03-29 07:44] LABS: Magnesium 2.4 mg/dL (1.6-2.6); Phosphorous 3.4 mg/dL (2.3-4.7); Potassium 3.8 mEq/L (3.5-4.5)
[2017-03-29] MEDS: Furosemide 40 MG/4 ML VIAL IVP SCH (08:30)
[2017-03-29 08:42] LABS: ABG Base Excess 12 mEq/L (-2 to 3); ABG HCO3 39 mEq/L (21-27); ABG Oxygen Saturation 96 % (95-98); ABG PCO2 74 mmHg (35-45); ABG PH 7.33 pH Units (7.32-7.45); ABG PO2 90 mmHg (85-104); ABG TCO2 42 mEq/L (20-26)
[2017-03-29 09:45] LABS: INR 1.3; Prothrombin Time 14.6 Seconds (9.4-12.1)
[2017-03-29] MEDS ORDERED: Propofol 500 MG/50 ML INFUS..BTL ONE (10:04)
--- NOTE | 2017-03-29 10:23 | Anesthesia Evaluation PreOp ---
Date of Encounter: 03/29/17 Time of Encounter: 10:40 - Past History Planned Operation: EGD Cardiac History: CHF, HTN, Arrhythmia (afib.) Pulmonary History: Former smoker, COPD, Other (chronic respiratory failure, on 3 L/O2 at home) Other Medical History: Denies Any Significant HX, Bleeding, GERD, Other ( prostate CA) Anesthesia History: No Prior Anesthetic Complications, Past Anesthesia Alcohol Use: occasionally Drug use: none Medications and Allergies Hydrocodone/Acetaminophen [[place] 5-325 Tablet] 1 tab PO BID PRN 03/26/15 [ History] Ketoconazole 2% CRM [Nizoral Cream] 1 appl TP BID PRN 03/26/15 [History] Melatonin 3 mg PO HS 03/26/15 [History] Omeprazole [PriLOSEC] 20 mg PO HS 03/26/15 [History] Terazosin [Hytrin] 5 mg PO HS 03/26/15 [History] TraZODone 100 mg PO HS 03/26/15 [History] Allopurinol [Zyloprim 100 MG] 200 mg PO DAILY 02/21/17 [History] Carvedilol [Coreg] 6.25 mg PO BID 02/21/17 [History] Cholecalciferol (D-3) [Vitamin D] 1,000 unit PO DAILY 02/21/17 [History] Dextran 70/Hypromellose [Artificial Tears] 1 drop BOTH EYES DAILY PRN 02/21/17 [ History] Docusate [Colace] 100 mg PO BID PRN 02/21/17 [History] Furosemide [Lasix] 40 mg PO BID 02/21/17 [History] Gabapentin [Neurontin] 600 mg PO HS 02/21/17 [History] Petrolatum,White [Aloe [place]] 1 appl TP TID PRN 02/21/17 [History] Spironolactone [Aldactone] 12.5 mg PO DAILY 02/21/17 [History] Leuprolide Acetate [Lupron Depot] 22.5 mg IM [id number] 02/22/17 [History] Meclizine HCl [Verticalm] 25 mg PO TID PRN 02/22/17 [History] Acetaminophen [Tylenol] 1,000 mg PO BID PRN 03/27/17 [History] Ferrous Gluconate 324 mg PO BID 03/27/17 [History] Ipratropium/Albuterol Sulfate [Combivent Respimat Inhal [place]] 1 puff IH QID PRN 03/27/17 [History] Venlafaxine XR (24 HR) [Effexor XR] 37.5 mg PO DAILY 03/27/17 [History] Vit C/E/Zn/Coppr/Lutein/Zeaxan [Preservision Areds 2 Softgel] 1 cap PO BID 03/27 [History] Warfarin [Coumadin] 2.5 mg PO SUTUTH 03/27/17 [History] Warfarin [Coumadin] 5 mg PO MOWEFRSA 03/27/17 [History] 3 Allergy/AdvReac Type Severity Reaction Status Date / Time Sulfa (Sulfonamide Allergy Rash Verified 02/21/17 21:52 Antibiotics) - Meds/Allergy Pre-op Review Medications Reviewed: Yes Allergies Reviewed: Yes Beta Blockers on Current Med List: Yes (last dose 20:35) Anesthesia Results - Labs 03/29/17 06:39 03/29/17 06:39 - Imaging EKG: report reviewed Anesthesia Exam Selected Entries 03/29/17 07:45 Temperature 97.9 F Pulse Rate 54 Respiratory Rate 17 Blood Pressure 126/67 O2 Sat by Pulse Oximetry 98 Weight: 98 kg NPO (# of Hours): over 8 hours - HEENT Pupil (Motor): Pupils equal Mallampati: II Teeth: Poor dentition Oral Opening: Greater than 3 - Cardiac Rhythm: Irregular Murmur: None - Pulmonary Breath Sounds: bilateral Clear Respiratory Effort: Symmetrical Anesthesia Assess/Plan ASA Score: 3 Modified Gardner Scale for Level of Consciousness: Cooperative, oriented, and tranquil Anesthetic Plan: MAC Monitoring Plan: Standard Monitors Recovery Plan: Other
--- NOTE | 2017-03-29 10:59 | Event Note ---
Date of Encounter: 03/29/17 Time of Encounter: 10:58 The patient underwent an EGD this morning. Small size hiatal hernia identified. Small gastric polyp, nonbleeding. Biopsy. No evidence of ulcer or active bleeding. Will advance to soft foods. Will contact patient with biopsy results with no evidence of active bleeding the EGD. I do not think he requires a colonoscopy at this time. We will sign off, thank you very much.
--- NOTE | 2017-03-29 11:16 | Electrocardiograph Report ---
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
[2017-03-29] MEDS: Spironolactone 25 MG TABLET PO SCH (11:49)
[2017-03-29] MEDS: Cholecalciferol (D-3) 1,000 UNIT TABLET PO SCH (11:49)
[2017-03-29] MEDS: Venlafaxine XR (24 HR) 37.5 MG CAP.ER.24H PO SCH (11:50)
[2017-03-29] MEDS: (Vit C/E/Zn/Coppr/Lutein/Zeaxan [Preservision Areds 2) PO SCH (11:50)
[2017-03-29 14:32] LABS: Basophils % 0.2 %; Eosinophils # 0.2 K/mcL (0.0-0.6); Eosinophils % 1.9 %; Hematocrit 22.8 % (37.5-50.1); Immature Granulocytes % 0.7 % (0-4); Immature Platelets 2.9 % (1.1-6.1); Lymphocytes % 12.2 %; Mean Corpuscular HGB Conc 30.7 g/dL (31.6-35.5); Mean Corpuscular Hemoglobin 30.2 pg (28.0-33.3); Mean Corpuscular Volume 98.3 fL (83.0-100.0); Mean Platelet Volume 10.5 fL (9.4-12.4); Monocytes # 0.5 K/mcL (0.0-1.3); Monocytes % 5.8 %; Neutrophils # 6.5 K/mcL (1.6-8.9); Platelet Count 134 K/mcL (140-400); Red Blood Count 2.32 M/mcL (4.19-5.50); Red Cell Distribution Width 21.6 % (11.5-14.5); Segmented Neutrophils % 79.2 %
--- NOTE | 2017-03-29 14:42 | Internal Med Progress Note ---
Date of Encounter: 03/29/17 Time of Encounter: 14:41 - Assessment and plan (1) Acute blood loss anemia Current Visit: Yes Status: Acute Assessment and plan: Secondary to GI bleed s/p 3unit PRBC transfusion (03/28/17) clinical reports of doing better compared previous day repeat H&H within acceptable range surgery consultation appreciated s/p EGD: mall size hiatal hernia identified. Small gastric polyp, nonbleeding. Biopsy. No evidence of ulcer or active bleeding. No colonoscopy at this time will continue IV PPI will closely monitor H&H (2) Melena Current Visit: Yes Status: Acute Assessment and plan: plan as listed above (3) Pneumonia Current Visit: Yes Status: Acute Assessment and plan: will repeat CXR d/c IV abx and started PO levaquin Qualifiers: Pneumonia type: due to unspecified organism Laterality: right Lung location: lower lobe of lung Qualified Code(s): J18.1 - Lobar pneumonia, unspecified organism (4) CHF (congestive heart failure) Current Visit: Yes Status: Chronic Assessment and plan: no acute exacerbation d/c IV diuresis and start PO lasix will closely monitor for volume overload Qualifiers: Congestive heart failure type: unspecified congestive heart failure type Congestive heart failure chronicity: chronic Qualified Code(s): I50.9 - Heart failure, unspecified (5) HTN (hypertension) Current Visit: Yes Status: Chronic Assessment and plan: BP within acceptable range continue to monitor Qualifiers: Hypertension type: unspecified Qualified Code(s): I10 - Essential (primary ) hypertension (6) Afib Current Visit: No Status: Chronic Assessment and plan: Rate controlled with Carvedilol holding anticoagulation due to GI bleed continue tele monitoring Qualifiers: Atrial fibrillation type: permanent Qualified Code(s): I48.2 - Chronic atrial fibrillation (7) CKD (chronic kidney disease) stage 3, GFR 30-59 ml/min Current Visit: No Status: Chronic Assessment and plan: Renal function at baseline continue to monitor (8) COPD (chronic obstructive pulmonary disease) Current Visit: No Status: Chronic Assessment and plan: not in acute exacerbation continue home meds Noted to have worsening hypercapnea but clinically asymptomatic ABG compensated bipap at bedtime and as needed Qualifiers: COPD type: unspecified COPD Qualified Code(s): J44.9 - Chronic obstructive pulmonary disease, unspecified (9) DVT prophylaxis Current Visit: Yes Status: Acute Assessment and plan: SCD - Subjective Interval history: Patient seen and examined at bedside. Sitting in chair and eating lunch. S/P EGD -no acute bleeding reported. Pt tolerating soft diet well H&H within acceptable range Noted to have worsening hypercapnea but clinically asymptomatic Will d/c IV lasix and start PO lasix closely monitor H&H No BM reported today - Constitutional Vitals: Temp Pulse Resp BP Pulse Ox 97.9 F 91 16 159/69 91 03/29/17 11:11 03/29/17 11:11 03/29/17 11:11 03/29/17 11:11 03/29/17 11:11 General appearance: Present: cooperative, A&O X 3, pleasant, no acute distress, answers questions appropriately - Head Head exam: Present: atraumatic, normocephalic - Eye Eye exam: Present: conjuntiva pink, sclera anicteric - Respiratory Respiratory exam: Present: CTAB. Absent: accessory muscle use, rales, rhonchi, wheezes - Cardiovascular Cardiovascular exam: Present: RRR, +S1, +S2. Absent: diastolic murmur, gallop, rubs, systolic murmur - GI/Abdominal GI/Abdominal exam: Present: normal bowel sounds, soft, no peritoneal signs. Absent: distended, tenderness - Extremities Exam Extremities exam: Present: pedal edema, warm, radial pulses palpable and symmetrical. Absent: calf tenderness - Neurological Exam Neurological exam: Present: alert, oriented X3 - Psychiatric Psychiatric exam: Present: normal affect, normal mood Internal Medicine: Result - Labs CBC & Chem 7: 03/29/17 14:15 03/29/17 06:39 Labs: Short CBC 03/28/17 03/28/17 03/28/17 Range/Units 16:53 18:43 22:53 WBC 9.5 7.2 (4.3-11.1) K/mcL Hgb 7.1 L 7.1 L 6.2 L (12.9-16.9) g/dL Hct 22.5 L 22.7 L 20.1 L (37.5-50.1) % Plt Count 136 L 115 L (140-400) K/mcL Neutrophils # 7.4 5.4 (1.6-8.9) K/mcL 03/29/17 03/29/17 Range/Units 06:39 14:15 WBC 7.4 8.2 (4.3-11.1) K/mcL Hgb 6.4 L 7.0 L (12.9-16.9) g/dL Hct 20.8 L 22.8 L (37.5-50.1) % Plt Count 123 L 134 L (140-400) K/mcL Neutrophils # 5.5 (1.6-8.9) K/mcL BMP 03/29/17 06:39 Sodium 150 H Potassium 3.8 Chloride 106 Carbon Dioxide 41 H* BUN 61 H D Creatinine 1.78 H Glucose 95 Calcium 9.0 - ABG Interpretation ABG results: ABG ABG pH 7.33 pH Units (7.32-7.45) 03/29/17 08:35 ABG pCO2 74 mmHg (35-45) H* 03/29/17 08:35 ABG pO2 90 mmHg (85-104) 03/29/17 08:35 ABG O2 Saturation 96 % (95-98) 03/29/17 08:35 PT/INR, D-dimer PT 14.6 Seconds (9.4-12.1) H 03/29/17 09:23 Consult Discharge Plan - Plan [facility]errals: [facility] [Primary Care Provider] -
[2017-03-29 15:02] LABS: Anisocytosis 1+ (Not Present)
[2017-03-29 15:04] LABS: Hypochromasia Present (Not Present)
[2017-03-29] MEDS ORDERED: levoFLOXacin 750 MG TABLET PO SCH (17:00)
[2017-03-29] MEDS: Pantoprazole 40 MG VIAL IVP SCH (17:07)
[2017-03-29] MEDS: Furosemide 40 MG TABLET PO SCH (17:07)
[2017-03-29] MEDS: Gabapentin 300 MG CAPSULE PO SCH (21:37)
[2017-03-29] MEDS: traZODone 50 MG TABLET PO SCH (21:38)
[2017-03-29] MEDS: Melatonin 3 MG TABLET PO SCH (21:38)
[2017-03-30 05:25] LABS: Basophils % 0.1 %; Eosinophils # 0.2 K/mcL (0.0-0.6); Eosinophils % 2.8 %; Hematocrit 20.1 % (37.5-50.1); Hemoglobin 6.2 g/dL (12.9-16.9); Immature Granulocytes % 0.9 % (0-4); Lymphocytes % 14.7 %; Mean Corpuscular HGB Conc 30.8 g/dL (31.6-35.5); Mean Corpuscular Hemoglobin 30.1 pg (28.0-33.3); Mean Corpuscular Volume 97.6 fL (83.0-100.0); Mean Platelet Volume 10.2 fL (9.4-12.4); Monocytes # 0.4 K/mcL (0.0-1.3); Monocytes % 6.4 %; Neutrophils # 5.1 K/mcL (1.6-8.9); Nucleated Red Blood Cells 0.3 /100 WBC (0); Platelet Count 120 K/mcL (140-400); Red Blood Count 2.06 M/mcL (4.19-5.50); Segmented Neutrophils % 75.1 %
[2017-03-30 05:38] LABS: Calcium 8.9 mg/dL (8.6-10.8); Phosphorous 2.7 mg/dL (2.3-4.7); Potassium 3.8 mEq/L (3.5-4.5)
[2017-03-30] MEDS: Pantoprazole 40 MG VIAL IVP SCH ×2 (06:26→17:18)
[2017-03-30] MEDS: Cholecalciferol (D-3) 1,000 UNIT TABLET PO SCH (09:01)
[2017-03-30] MEDS: Venlafaxine XR (24 HR) 37.5 MG CAP.ER.24H PO SCH (09:01)
[2017-03-30] MEDS: Furosemide 40 MG TABLET PO SCH (09:01)
[2017-03-30] MEDS: Spironolactone 25 MG TABLET PO SCH (09:01)
[2017-03-30] MEDS ORDERED: Furosemide 20 MG/2 ML VIAL IVP ONE (09:46)
[2017-03-30 10:01] LABS: Hematocrit 20.7 % (37.5-50.1); Hemoglobin 6.5 g/dL (12.9-16.9)
[2017-03-30] MEDS ORDERED: Polyethylene Glycol 3350 255 GM POWDER PO ONE (15:34)
--- NOTE | 2017-03-30 15:52 | General Surgery Progress Note ---
Date of Encounter: 03/30/17 Time of Encounter: 15:45 - Assessment and Plan (1) Anemia Current Visit: Yes Status: Acute EGD normal Hgb 7.0>6.2>6.5 (last transfusion of PRBC 03/28/17- total of 3 units of PRBC this admission) Bowel prep today with Miralax and Gatorade Dulcolax X 2 doses Clear liquids- no red dye NPO after midnight Monitor Hgb/Hct Risks, benefits, alternatives and expected outcomes reviewed with the patient and he is in agreement to proceed with a colonoscopy. Plan for colonoscopy in the next [address] Lai. Will proceed when patient is clear. Qualifiers: Anemia type: unspecified type Qualified Code(s): D64.9 - Anemia, unspecified (2) Melena Current Visit: Yes Status: Acute EGD normal Hgb 7.0>6.2>6.5 (last transfusion of PRBC 03/28/17- total of 3 units of PRBC this admission) Bowel prep today with Miralax and Gatorade Dulcolax X 2 doses Clear liquids- no red dye NPO after midnight Monitor Hgb/Hct Risks, benefits, alternatives and expected outcomes reviewed with the patient and he is in agreement to proceed with a colonoscopy. Plan for colonoscopy in the next [address] Lai. Will proceed when patient is clear. Subjective Patient reports: no new complaints, feels better, tolerating a regular diet ( soft diet), voiding w/o difficulty, flatus, bowel movement (dark stools), afebrile Objective Vital Signs - Last 8 Hours Temp Pulse Resp BP Pulse Ox 03/30/17 15:42 98.1 F 72 16 145/60 100 03/30/17 10:46 97.9 F 81 18 137/64 99 03/30/17 09:01 99 Intake and Output 03/29/17 03/30/17 03/30/17 23:59 07:59 15:59 Intake Total 240 / 240 1570 / 1570 Output Total 1350 / 1350 150 / 150 925 / 925 Balance -1110 / -1110 -150 / -150 645 / 645 Intake: Oral 240 / 240 1570 / 1570 Output: Urine 1350 / 1350 150 / 150 925 / 925 Other: Meal Dinner water pitcher Percent of Meal Consumed 100% 100% Weight 98.8 kg Patient Weight 03/30/17 23:59 Weight 98.8 kg - General physical appearance well developed, well nourished, no distress, no pain - Eyes normal ocular movement - ENT normal mucosa, atraumatic, normocephalic - Neck Neck exam: trachea midline - Respiratory normal expansion, normal respiratory effort, clear to auscultation - Cardiovascular Cardiovascular exam: Present: RRR - Abdomen Abdomen: Present: bowel sounds present, soft, non tender - Musculoskeletal normal gait, normal posture - Psychiatric oriented to time, oriented to person, oriented to place, speech is normal, memory intact - Labs 03/30/17 09:55 03/30/17 05:07 Diabetes panel 03/30/17 Range/Units 05:07 Sodium 146 H (136-145) mEq/L Potassium 3.8 (3.5-4.5) mEq/L Chloride 101 (98-109) mEq/L Carbon Dioxide 39 H (19-29) mEq/L BUN 49 H D (8-26) mg/dL Creatinine 1.70 H (0.72-1.25) mg/dL Glucose 92 (70-99) mg/dL Calcium 8.9 (8.6-10.8) mg/dL Calcium panel 03/30/17 Range/Units 05:07 Calcium 8.9 (8.6-10.8) mg/dL Phosphorus 2.7 (2.3-4.7) mg/dL Pituitary panel 03/30/17 Range/Units 05:07 Sodium 146 H (136-145) mEq/L Potassium 3.8 (3.5-4.5) mEq/L Chloride 101 (98-109) mEq/L Carbon Dioxide 39 H (19-29) mEq/L BUN 49 H D (8-26) mg/dL Creatinine 1.70 H (0.72-1.25) mg/dL Glucose 92 (70-99) mg/dL Calcium 8.9 (8.6-10.8) mg/dL Adrenal panel 03/30/17 Range/Units 05:07 Sodium 146 H (136-145) mEq/L Potassium 3.8 (3.5-4.5) mEq/L Chloride 101 (98-109) mEq/L Carbon Dioxide 39 H (19-29) mEq/L BUN 49 H D (8-26) mg/dL Creatinine 1.70 H (0.72-1.25) mg/dL Glucose 92 (70-99) mg/dL Calcium 8.9 (8.6-10.8) mg/dL - VTE Documentation of Mechanical Device: Intermittent pneumatic compression device Consult Discharge Plan - Plan [facility]errals: [facility] [Primary Care Provider] -
--- NOTE | 2017-03-30 15:58 | Internal Med Progress Note ---
Date of Encounter: 03/30/17 Time of Encounter: 15:55 - Assessment and plan (1) Acute blood loss anemia Current Visit: Yes Status: Acute Assessment and plan: Secondary to GI bleed s/p 3unit PRBC transfusion (03/28/17) Noted to have drop in H&H, surgery revaluation requested NPO after midnight for colonoscopy in am will transfuse one unit PRBC, closely monitor for signs of volume overload s/p EGD: mall size hiatal hernia identified. Small gastric polyp, nonbleeding. Biopsy. No evidence of ulcer or active bleeding. will continue IV PPI will closely monitor H&H (2) Melena Current Visit: Yes Status: Acute Assessment and plan: plan as listed above (3) Pneumonia Current Visit: Yes Status: Acute Assessment and plan: continue PO levaquin Qualifiers: Qualified Code(s): J18.1 - Lobar pneumonia, unspecified organism (4) CHF (congestive heart failure) Current Visit: Yes Status: Chronic Assessment and plan: no acute exacerbation noted to have worsening pleural effusion and b/l LE edema will restart IV lasix Qualifiers: Qualified Code(s): I50.9 - Heart failure, unspecified (5) HTN (hypertension) Current Visit: Yes Status: Chronic Assessment and plan: BP within acceptable range continue to monitor Qualifiers: Qualified Code(s): I10 - Essential (primary) hypertension (6) Afib Current Visit: No Status: Chronic Assessment and plan: Rate controlled with Carvedilol holding anticoagulation due to GI bleed continue tele monitoring Qualifiers: Qualified Code(s): I48.2 - Chronic atrial fibrillation (7) CKD (chronic kidney disease) stage 3, GFR 30-59 ml/min Current Visit: No Status: Chronic Assessment and plan: Renal function at baseline continue to monitor (8) COPD (chronic obstructive pulmonary disease) Current Visit: No Status: Chronic Assessment and plan: not in acute exacerbation continue home meds Noted to have worsening hypercapnea but clinically asymptomatic ABG compensated bipap at bedtime and as needed Qualifiers: Qualified Code(s): J44.9 - Chronic obstructive pulmonary disease, unspecified (9) DVT prophylaxis Current Visit: Yes Status: Acute Assessment and plan: SCD - Subjective Interval history: Patient seen and examined at bedside with present at bedside. Noted to have drop in H&H Surgery reconsulted. NPO after midnight for colonoscopy in am will transfuse one unit PRBC noted to have b/l Pleural effusion on cXR but denies any respiratory distress, however noted to have worsening lower extremity edema Will continue restart IV lasix - Constitutional Vitals: Temp Pulse Resp BP Pulse Ox 98.1 F 72 16 145/60 100 03/30/17 15:42 03/30/17 15:42 03/30/17 15:42 03/30/17 15:42 03/30/17 15:42 General appearance: Present: cooperative, A&O X 3, pleasant, no acute distress, obese, answers questions appropriately - Head Head exam: Present: atraumatic, normocephalic - Eye Eye exam: Present: conjuntiva pink, sclera anicteric - Respiratory Respiratory exam: Present: decreased breath sounds, rales. Absent: respiratory distress, wheezes - Cardiovascular Cardiovascular exam: Present: RRR, +S1, +S2. Absent: diastolic murmur, gallop, rubs, systolic murmur - GI/Abdominal GI/Abdominal exam: Present: normal bowel sounds, soft, no peritoneal signs. Absent: distended, tenderness - Extremities Exam Extremities exam: Present: pedal edema, warm, radial pulses palpable and symmetrical. Absent: calf tenderness - Neurological Exam Neurological exam: Present: alert, oriented X3 - Psychiatric Psychiatric exam: Present: normal affect, normal mood Internal Medicine: Result - Labs CBC & Chem 7: 03/30/17 09:55 03/30/17 05:07 Labs: Short CBC 03/30/17 03/30/17 Range/Units 05:07 09:55 WBC 6.7 (4.3-11.1) K/mcL Hgb 6.2 L 6.5 L (12.9-16.9) g/dL Hct 20.1 L 20.7 L (37.5-50.1) % Plt Count 120 L (140-400) K/mcL Neutrophils # 5.1 (1.6-8.9) K/mcL BMP 03/30/17 05:07 Sodium 146 H Potassium 3.8 Chloride 101 Carbon Dioxide 39 H BUN 49 H D Creatinine 1.70 H Glucose 92 Calcium 8.9 - ABG Interpretation ABG results: ABG ABG pH 7.33 pH Units (7.32-7.45) 03/29/17 08:35 ABG pCO2 74 mmHg (35-45) H* 03/29/17 08:35 ABG pO2 90 mmHg (85-104) 03/29/17 08:35 ABG O2 Saturation 96 % (95-98) 03/29/17 08:35 PT/INR, D-dimer PT 14.6 Seconds (9.4-12.1) H 03/29/17 09:23 - Impressions Impressions Chest X-Ray 03/30/17 07:30 IMPRESSION: Bilateral pleural effusions more pronounced than on the prior examination with consolidation atelectasis seen in the right lung base. Stable cardiomegaly. D/ / 03/30/2017 08:58:58 Alfredo Kay MD / [facility] Interpreting Provider: Alfredo Kay MD - VTE Documentation of Mechanical Device: Intermittent pneumatic compression device Consult Discharge Plan - Plan Referrals: [facility] [Primary Care Provider] -
[2017-03-30] MEDS ORDERED: 0.9 % Sodium Chloride 500 ML ONE (17:15)
[2017-03-30] MEDS: Furosemide 40 MG/4 ML VIAL IVP SCH (17:18)
--- NOTE | 2017-03-30 21:05 | Anesthesia Evaluation PreOp ---
Date of Encounter: 03/30/17 Time of Encounter: 21:00 - Past History Planned Operation: colonoscopy Cardiac History: CHF, HTN, Hyperlipidemia, Arrhythmia (afib), Pacemaker/ICD ( pacemaker 3-4 years ago) Pulmonary History: Former smoker, COPD (uses 3L oxygen at home) WHEEL ALIGNER History: Denies Any Significant HX Other Medical History: Renal (ckd), Bleeding, GERD, Other (prostate CA - s/p chemo/radiation) Anesthesia History: No Prior Anesthetic Complications Alcohol Use: occasionally Drug use: none Medications and Allergies Hydrocodone/Acetaminophen [[place] 5-325 Tablet] 1 tab PO BID PRN 03/26/15 [ History] Ketoconazole 2% CRM [Nizoral Cream] 1 appl TP BID PRN 03/26/15 [History] Melatonin 3 mg PO HS 03/26/15 [History] Omeprazole [PriLOSEC] 20 mg PO HS 03/26/15 [History] Terazosin [Hytrin] 5 mg PO HS 03/26/15 [History] TraZODone 100 mg PO HS 03/26/15 [History] Allopurinol [Zyloprim 100 MG] 200 mg PO DAILY 02/21/17 [History] Carvedilol [Coreg] 6.25 mg PO BID 02/21/17 [History] Cholecalciferol (D-3) [Vitamin D] 1,000 unit PO DAILY 02/21/17 [History] Dextran 70/Hypromellose [Artificial Tears] 1 drop BOTH EYES DAILY PRN 02/21/17 [ History] Docusate [Colace] 100 mg PO BID PRN 02/21/17 [History] Furosemide [Lasix] 40 mg PO BID 02/21/17 [History] Gabapentin [Neurontin] 600 mg PO HS 02/21/17 [History] Petrolatum,White [Aloe [place]] 1 appl TP TID PRN 02/21/17 [History] Spironolactone [Aldactone] 12.5 mg PO DAILY 02/21/17 [History] Leuprolide Acetate [Lupron Depot] 22.5 mg IM [id number] 02/22/17 [History] Meclizine HCl [Verticalm] 25 mg PO TID PRN 02/22/17 [History] Acetaminophen [Tylenol] 1,000 mg PO BID PRN 03/27/17 [History] Ferrous Gluconate 324 mg PO BID 03/27/17 [History] Ipratropium/Albuterol Sulfate [Combivent Respimat Inhal [place]] 1 puff IH QID PRN 03/27/17 [History] Venlafaxine XR (24 HR) [Effexor XR] 37.5 mg PO DAILY 03/27/17 [History] Vit C/E/Zn/Coppr/Lutein/Zeaxan [Preservision [place] 2 Softgel] 1 cap PO BID 03/27 [History] Warfarin [Coumadin] 2.5 mg PO SUTUTH 03/27/17 [History] Warfarin [Coumadin] 5 mg PO MOWEFRSA 03/27/17 [History] 3 Allergy/AdvReac Type Severity Reaction Status Date / Time Sulfa (Sulfonamide Allergy Rash Verified 02/21/17 21:52 Antibiotics) - Meds/Allergy Pre-op Review Medications Reviewed: Yes Allergies Reviewed: Yes Beta Blockers on Current Med List: Yes Anesthesia Results - Labs 03/30/17 09:55 03/30/17 05:07 - Imaging EKG: report reviewed, image reviewed (ATRIAL FIBRILLATION WITH ABERRANT CONDUCTION OR VENTRICULAR PREMATURE COMPLEXES MARKED LEFT AXIS DEVIATION) Anesthesia Exam Last Vital Signs Temp 97.7 F 03/30/17 21:04 Pulse 75 03/30/17 21:04 Resp 14 03/30/17 21:04 BP 156/68 03/30/17 21:04 Pulse Ox 100 03/30/17 21:04 Weight: 99 kg NPO (# of Hours): > 8 hrs - HEENT Pupil (Motor): Pupils equal, EOMI Mallampati: II Teeth: Poor dentition Oral Opening: Greater than 3 - WHEEL ALIGNER LOC: Oriented WHEEL ALIGNER Motor: Normal RUE, Normal LUE, Normal RLE, Normal LLE, Normal Face - Cardiac Rhythm: Regular Murmur: None - Pulmonary Breath Sounds: bilateral Clear Respiratory Effort: Symmetrical Anesthesia Assess/Plan ASA Score: 3 Modified [place] Scale for Level of Consciousness: Cooperative, oriented, and tranquil Anesthetic Plan: MAC Monitoring Plan: Standard Monitors Recovery Plan: PACU
[2017-03-30] MEDS: traZODone 50 MG TABLET PO SCH (21:48)
[2017-03-30] MEDS: Melatonin 3 MG TABLET PO SCH (21:48)
[2017-03-30] MEDS: Gabapentin 300 MG CAPSULE PO SCH (21:48)
[2017-03-31 03:57] LABS: Basophils % 0.4 %; Eosinophils # 0.2 K/mcL (0.0-0.6); Eosinophils % 2.5 %; Hematocrit 23.7 % (37.5-50.1); Hemoglobin 7.3 g/dL (12.9-16.9); Immature Granulocytes % 1.1 % (0-4); Lymphocytes # 1.2 K/mcL (0.6-4.6); Lymphocytes % 15.2 %; Mean Corpuscular HGB Conc 30.8 g/dL (31.6-35.5); Mean Corpuscular Hemoglobin 29.3 pg (28.0-33.3); Mean Corpuscular Volume 95.2 fL (83.0-100.0); Mean Platelet Volume 10.3 fL (9.4-12.4); Monocytes # 0.6 K/mcL (0.0-1.3); Monocytes % 7.7 %; Neutrophils # 5.5 K/mcL (1.6-8.9); Platelet Count 111 K/mcL (140-400); Red Blood Count 2.49 M/mcL (4.19-5.50); Red Cell Distribution Width 21.2 % (11.5-14.5); Segmented Neutrophils % 73.1 %
[2017-03-31 04:16] LABS: Calcium 9.1 mg/dL (8.6-10.8); Magnesium 1.9 mg/dL (1.6-2.6); Phosphorous 3.4 mg/dL (2.3-4.7); Potassium 3.8 mEq/L (3.5-4.5)
[2017-03-31] MEDS: Pantoprazole 40 MG VIAL IVP SCH ×2 (06:00→17:58)
[2017-03-31] MEDS: Furosemide 40 MG/4 ML VIAL IVP SCH (08:59)
[2017-03-31] MEDS: Venlafaxine XR (24 HR) 37.5 MG CAP.ER.24H PO SCH (08:59)
[2017-03-31] MEDS: Cholecalciferol (D-3) 1,000 UNIT TABLET PO SCH (08:59)
[2017-03-31] MEDS: Spironolactone 25 MG TABLET PO SCH (08:59)
--- NOTE | 2017-03-31 12:23 | Internal Med Progress Note ---
Date of Encounter: 03/31/17 Time of Encounter: 12:21 - Assessment and plan (1) GI bleeding Current Visit: Yes Status: Acute Assessment and plan: Patient presented with severe symptomatic anemia and melena. Received 4 units PRBC and 3 units FFP so far. Hemoglobin currently stable, 7.3 today. Patient also had supratherapeutic INR at 4.6 at admission, currently 1.3. Continue IV PPI. Surgery was consulted, patient underwent EGD which revealed small hiatal hernia , sessile nonbleeding gastric polyp, status post resection. No stigmata of bleeding. Patient continued to have a drop in hemoglobin, plan for colonoscopy today. Continue to hold Coumadin at this time. Qualifiers: GI bleed type/associated pathology: melena Qualified Code(s): K92.1 - Melena (2) Acute blood loss anemia Current Visit: Yes Status: Acute Assessment and plan: Presented with hemoglobin of 5.4, currently 7.3. Status post 4 units PRBC transfusion. Follow-up colonoscopy. Continue supportive care. (3) Pneumonia Current Visit: Yes Status: Acute Assessment and plan: Continue Levaquin. Supportive care and supplemental oxygen as needed. Qualifiers: Pneumonia type: due to unspecified organism Laterality: right Lung location: lower lobe of lung Qualified Code(s): J18.1 - Lobar pneumonia, unspecified organism (4) Afib Current Visit: Yes Status: Chronic Assessment and plan: Currently rate controlled. Continue beta mae. Hold anticoagulation for now. Qualifiers: Atrial fibrillation type: permanent Qualified Code(s): I48.2 - Chronic atrial fibrillation (5) Depression Current Visit: Yes Status: Chronic Qualifiers: Depression Type: unspecified Qualified Code(s): F32.9 - Major depressive disorder, single episode, unspecified (6) Chronic respiratory failure with hypoxia Current Visit: Yes Status: Chronic (7) CKD (chronic kidney disease) stage 3, GFR 30-59 ml/min Current Visit: Yes Status: Chronic Assessment and plan: Serum creatinine noted to be at baseline, around 1.7. Continue to monitor closely. (8) COPD (chronic obstructive pulmonary disease) Current Visit: Yes Status: Chronic Assessment and plan: Not in acute exacerbation. Continue when necessary bronchodilators and supplemental oxygen. Qualifiers: COPD type: unspecified COPD Qualified Code(s): J44.9 - Chronic obstructive pulmonary disease, unspecified (9) CHF (congestive heart failure) Current Visit: Yes Status: Chronic Assessment and plan: Continue diuretic, beta mae. not in acute exacerbation. Qualifiers: Congestive heart failure type: unspecified congestive heart failure type Congestive heart failure chronicity: chronic Qualified Code(s): I50.9 - Heart failure, unspecified - Subjective Interval history: Feels better; no further melena, hematochezia, nausea, vomiting; had bowel prep last night with clear bowel movements, awaiting colonoscopy kendra. - Constitutional Vitals: Temp Pulse Resp BP Pulse Ox 98.2 F 71 16 134/69 98 03/31/17 11:31 03/31/17 11:31 03/31/17 11:31 03/31/17 11:31 03/31/17 11:31 General appearance: Present: cooperative, A&O X 3, pleasant, answers questions appropriately - Respiratory Respiratory exam: Present: CTAB. Absent: accessory muscle use, rales, rhonchi, wheezes - Cardiovascular Cardiovascular exam: Present: RRR, +S1, +S2, systolic murmur. Absent: diastolic murmur, gallop, rubs - GI/Abdominal GI/Abdominal exam: Present: normal bowel sounds, soft, no peritoneal signs. Absent: distended, tenderness Internal Medicine: Result - Labs CBC & Chem 7: 03/31/17 03:14 03/31/17 03:14 Labs: Short CBC 03/31/17 Range/Units 03:14 WBC 7.6 (4.3-11.1) K/mcL Hgb 7.3 L (12.9-16.9) g/dL Hct 23.7 L (37.5-50.1) % Plt Count 111 L (140-400) K/mcL Neutrophils # 5.5 (1.6-8.9) K/mcL BMP 03/31/17 03:14 Sodium 142 Potassium 3.8 Chloride 98 Carbon Dioxide 38 H BUN 47 H Creatinine 1.80 H Glucose 95 Calcium 9.1 - ABG Interpretation ABG results: ABG ABG pH 7.33 pH Units (7.32-7.45) 03/29/17 08:35 ABG pCO2 74 mmHg (35-45) H* 03/29/17 08:35 ABG pO2 90 mmHg (85-104) 03/29/17 08:35 ABG O2 Saturation 96 % (95-98) 03/29/17 08:35 PT/INR, D-dimer PT 14.6 Seconds (9.4-12.1) H 03/29/17 09:23 - VTE Documentation of Mechanical Device: Intermittent pneumatic compression device Consult Discharge Plan - Plan [facility] Care Provider[facility] -
[2017-03-31] MEDS ORDERED: *HR* Propofol 200 MG/20 ML VIAL IVP ONE (16:10)
--- NOTE | 2017-03-31 16:35 | Event Note ---
Date of Encounter: 03/31/17 Time of Encounter: 16:34 Colonoscopy completed: no evidence of bleeding. Small diverticulum noted. Noted small descending colon polyp-removed. Medium sized hemorrhoids. OK to advance diet. Will contact patient once biopsy results are finalized.
--- NOTE | 2017-03-31 16:39 | General Surgery Procedure Note ---
Date of procedure: 03/31/17 Pre-op diagnosis: Dark colored stools Post-op diagnosis: same Procedure: colonoscopy Findings: This is an addendum to the dictated colonoscopy report. In addition to the report a descending colon polyp was identified-3mm in size. It was removed and submitted to pathology. Anesthesia: MAC Surgeon: Darron Lai Pathology: other (polyp-descending colon) Condition: stable Disposition: PACU
[2017-03-31] MEDS ORDERED: Naloxone 0.4 MG/ML INJ IVP PRN (17:23)
[2017-03-31] MEDS ORDERED: Ipratropium/Albuterol Neb 3 ML IH PRN (17:23)
[2017-03-31] MEDS ORDERED: *HR* HYDROcodone/Acet 5/325 mg TABLET PO PRN (17:23)
[2017-03-31] MEDS ORDERED: Ondansetron 4 MG/2 ML VIAL IVP PRN (17:23)
[2017-03-31] MEDS: Melatonin 3 MG TABLET PO SCH (22:12)
[2017-03-31] MEDS: Gabapentin 300 MG CAPSULE PO SCH (22:12)
[2017-03-31] MEDS: traZODone 50 MG TABLET PO SCH (22:12)
[2017-04-01 05:55] LABS: Basophils % 0.5 %; Eosinophils # 0.2 K/mcL (0.0-0.6); Eosinophils % 3.3 %; Hematocrit 25.4 % (37.5-50.1); Hemoglobin 7.7 g/dL (12.9-16.9); Immature Granulocytes % 1.3 % (0-4); Lymphocytes % 15.4 %; Mean Corpuscular HGB Conc 30.3 g/dL (31.6-35.5); Mean Corpuscular Hemoglobin 29.8 pg (28.0-33.3); Mean Corpuscular Volume 98.4 fL (83.0-100.0); Mean Platelet Volume 10.7 fL (9.4-12.4); Monocytes # 0.4 K/mcL (0.0-1.3); Monocytes % 6.8 %; Neutrophils # 4.6 K/mcL (1.6-8.9); Platelet Count 123 K/mcL (140-400); Red Blood Count 2.58 M/mcL (4.19-5.50); Red Cell Distribution Width 21.3 % (11.5-14.5); Segmented Neutrophils % 72.7 %
[2017-04-01] MEDS: Pantoprazole 40 MG VIAL IVP SCH ×2 (06:07→18:42)
[2017-04-01] MEDS: Spironolactone 25 MG TABLET PO SCH (08:51)
[2017-04-01] MEDS: Venlafaxine XR (24 HR) 37.5 MG CAP.ER.24H PO SCH (08:52)
[2017-04-01] MEDS: Cholecalciferol (D-3) 1,000 UNIT TABLET PO SCH (08:52)
[2017-04-01] MEDS: Furosemide 40 MG/4 ML VIAL IVP SCH ×2 (08:53→18:42)
[2017-04-01] MEDS ORDERED: levoFLOXacin 750 MG TABLET PO SCH (10:00)
[2017-04-01] MEDS ORDERED: 0.9 % Sodium Chloride 500 ML ONE (14:41)
--- NOTE | 2017-04-01 15:39 | Internal Med Progress Note ---
Date of Encounter: 04/01/17 Time of Encounter: 11:30 - Assessment and plan (1) GI bleeding Current Visit: Yes Status: Acute Assessment and plan: Patient presented with severe symptomatic anemia and melena. Received 4 units PRBC and 3 units FFP so far. Hemoglobin noted to be 7.7 today, baseline hemoglobin around 9. We will transfuse 1 more unit of PRBC. Patient also had supratherapeutic INR at 4.6 at admission, currently 1.3. Continue IV PPI. Surgery was consulted, patient underwent EGD which revealed small hiatal hernia , sessile nonbleeding gastric polyp, status post resection. No stigmata of bleeding. Colonoscopy completed, showed nonbleeding internal hemorrhoids, diverticulosis and sessile nonbleeding descending colon polyp, pending biopsies. Case discussed with gastroenterology, may benefit from capsule endoscopy as an outpatient. Agree with restarting anticoagulation with Coumadin at this time due to absence of active bleeding. Qualifiers: GI bleed type/associated pathology: melena Qualified Code(s): K92.1 - Melena (2) Acute blood loss anemia Current Visit: Yes Status: Acute Assessment and plan: Unclear source of bleeding at this time. Presented with hemoglobin of 5.4, currently 7.7. Status post 4 units PRBC transfusion. Plan for another unit PRBC transfusion today. Continue supportive care. (3) Pneumonia Current Visit: Yes Status: Acute Assessment and plan: Continue Levaquin. Supportive care and supplemental oxygen as needed. Qualifiers: Pneumonia type: due to unspecified organism Laterality: right Lung location: lower lobe of lung Qualified Code(s): J18.1 - Lobar pneumonia, unspecified organism (4) Afib Current Visit: Yes Status: Chronic Assessment and plan: Currently rate controlled. Continue beta mae. Restart anticoagulation with Coumadin. Qualifiers: Atrial fibrillation type: permanent Qualified Code(s): I48.2 - Chronic atrial fibrillation (5) Depression Current Visit: Yes Status: Chronic Qualifiers: Depression Type: unspecified Qualified Code(s): F32.9 - Major depressive disorder, single episode, unspecified (6) Chronic respiratory failure with hypoxia Current Visit: Yes Status: Chronic (7) CKD (chronic kidney disease) stage 3, GFR 30-59 ml/min Current Visit: Yes Status: Chronic (8) COPD (chronic obstructive pulmonary disease) Current Visit: Yes Status: Chronic Qualifiers: COPD type: unspecified COPD Qualified Code(s): J44.9 - Chronic obstructive pulmonary disease, unspecified (9) CHF (congestive heart failure) Current Visit: Yes Status: Chronic Assessment and plan: Continue diuretic, beta mae. not in acute exacerbation, but continues to have dependent pedal edema; will give an extra dose of Lasix after blood transfusion. Qualifiers: Congestive heart failure type: unspecified congestive heart failure type Congestive heart failure chronicity: chronic Qualified Code(s): I50.9 - Heart failure, unspecified - Subjective Interval history: No nausea, vomiting, abdominal pain. No hematemesis, has no bowel movements today but reports melena until yesterday. Underwent colonoscopy yesterday, currently tolerates oral diet. - Constitutional Vitals: Temp Pulse Resp BP Pulse Ox 98.6 F 63 17 132/73 100 04/01/17 15:30 04/01/17 15:30 04/01/17 15:30 04/01/17 15:30 04/01/17 15:30 General appearance: Present: cooperative, A&O X 3, answers questions appropriately - Respiratory Respiratory exam: Present: CTAB. Absent: accessory muscle use, rales, rhonchi, wheezes - Cardiovascular Cardiovascular exam: Present: irregular rhythm, +S1, +S2, systolic murmur. Absent: diastolic murmur, gallop, rubs - GI/Abdominal GI/Abdominal exam: Present: normal bowel sounds, soft, no peritoneal signs. Absent: distended, tenderness - Extremities Exam Extremities exam: Present: pedal edema (2+ pitting pedal edema bilaterally), warm, radial pulses palpable and symmetrical. Absent: calf tenderness, cyanotic - Neurological Exam Neurological exam: Present: CN II-XII intact, oriented X3, no focal deficits. Absent: pronater drift, facial droop, speech deficit - Skin Skin exam: Present: dry, intact Internal Medicine: Result - Labs CBC & Chem 7: 04/01/17 05:27 03/31/17 03:14 Labs: Short CBC 04/01/17 Range/Units 05:27 WBC 6.3 (4.3-11.1) K/mcL Hgb 7.7 L (12.9-16.9) g/dL Hct 25.4 L (37.5-50.1) % Plt Count 123 L (140-400) K/mcL Neutrophils # 4.6 (1.6-8.9) K/mcL - ABG Interpretation ABG results: ABG ABG pH 7.33 pH Units (7.32-7.45) 03/29/17 08:35 ABG pCO2 74 mmHg (35-45) H* 03/29/17 08:35 ABG pO2 90 mmHg (85-104) 03/29/17 08:35 ABG O2 Saturation 96 % (95-98) 03/29/17 08:35 PT/INR, D-dimer PT 14.6 Seconds (9.4-12.1) H 03/29/17 09:23 - VTE Documentation of Mechanical Device: Intermittent pneumatic compression device Consult Discharge Plan - Plan Referrals: [facility] [Outside] (Home based care. They will call patient and set up. Thank you)
[2017-04-01] MEDS ORDERED: Furosemide 20 MG/2 ML VIAL IVP ONE (16:06)
[2017-04-01] MEDS ORDERED: Warfarin perPT PO PRN (18:00)
[2017-04-01] MEDS ORDERED: *HR* Warfarin 5 MG TABLET PO SCH (18:00)
[2017-04-01] MEDS: traZODone 50 MG TABLET PO SCH (19:59)
[2017-04-01] MEDS: Melatonin 3 MG TABLET PO SCH (19:59)
[2017-04-01] MEDS: Gabapentin 300 MG CAPSULE PO SCH (19:59)
[2017-04-02 06:03] LABS: Basophils % 0.3 %; Eosinophils # 0.2 K/mcL (0.0-0.6); Eosinophils % 2.8 %; Hematocrit 26.2 % (37.5-50.1); Hemoglobin 8.1 g/dL (12.9-16.9); Immature Granulocytes % 0.8 % (0-4); Lymphocytes # 0.9 K/mcL (0.6-4.6); Lymphocytes % 11.4 %; Mean Corpuscular HGB Conc 30.9 g/dL (31.6-35.5); Mean Platelet Volume 11.4 fL (9.4-12.4); Monocytes # 0.6 K/mcL (0.0-1.3); Monocytes % 7.5 %; Neutrophils # 5.9 K/mcL (1.6-8.9); Platelet Count 118 K/mcL (140-400); Red Cell Distribution Width 20.6 % (11.5-14.5); Segmented Neutrophils % 77.2 %
[2017-04-02 06:17] LABS: INR 1.4; Prothrombin Time 15.2 Seconds (9.4-12.1)
[2017-04-02] MEDS: Pantoprazole 40 MG VIAL IVP SCH (06:42)
[2017-04-02] MEDS: Cholecalciferol (D-3) 1,000 UNIT TABLET PO SCH (09:03)
[2017-04-02] MEDS: Furosemide 40 MG/4 ML VIAL IVP SCH (09:03)
[2017-04-02] MEDS: Venlafaxine XR (24 HR) 37.5 MG CAP.ER.24H PO SCH (09:03)
[2017-04-02] MEDS: Spironolactone 25 MG TABLET PO SCH (09:04)
[2017-04-02 11:16] VITALS: BP 137/74
--- NOTE | 2017-04-02 12:55 | Discharge Summary ---
Date of Encounter: 04/02/17 Time of Encounter: 10:30 - Discharge Diagnosis (1) GI bleeding Priority: Primary Status: Acute Qualifiers: GI bleed type/associated pathology: melena Qualified Code(s): K92.1 - Melena (2) Acute blood loss anemia Priority: Primary Status: Acute (3) Pneumonia Priority: Primary Status: Acute Qualifiers: Pneumonia type: due to unspecified organism Laterality: right Lung location: lower lobe of lung Qualified Code(s): J18.1 - Lobar pneumonia, unspecified organism (4) Afib Priority: Secondary Status: Chronic Qualifiers: Atrial fibrillation type: permanent Qualified Code(s): I48.2 - Chronic atrial fibrillation (5) Depression Priority: Secondary Status: Chronic Qualifiers: Depression Type: unspecified Qualified Code(s): F32.9 - Major depressive disorder, single episode, unspecified (6) Chronic respiratory failure with hypoxia Priority: Secondary Status: Chronic (7) CKD (chronic kidney disease) stage 3, GFR 30-59 ml/min Priority: Secondary Status: Chronic (8) COPD (chronic obstructive pulmonary disease) Priority: Secondary Status: Chronic Qualifiers: COPD type: unspecified COPD Qualified Code(s): J44.9 - Chronic obstructive pulmonary disease, unspecified (9) CHF (congestive heart failure) Priority: Secondary Status: Chronic Qualifiers: Congestive heart failure type: unspecified congestive heart failure type Congestive heart failure chronicity: chronic Qualified Code(s): I50.9 - Heart failure, unspecified - Discharge Medications Prescriptions: levoFLOXacin [Levaquin] 750 mg PO Q48H #2 tablet Home Medications: Hydrocodone/Acetaminophen [[place] 5-325 Tablet] 1 tab PO BID PRN 03/26/15 [ History] Ketoconazole 2% CRM [Nizoral Cream] 1 appl TP BID PRN 03/26/15 [History] Melatonin 3 mg PO HS 03/26/15 [History] Omeprazole [PriLOSEC] 20 mg PO HS 03/26/15 [History] Terazosin [Hytrin] 5 mg PO HS 03/26/15 [History] TraZODone 100 mg PO HS 03/26/15 [History] Allopurinol [Zyloprim 100 MG] 200 mg PO DAILY 02/21/17 [History] Carvedilol [Coreg] 6.25 mg PO BID 02/21/17 [History] Cholecalciferol (D-3) [Vitamin D] 1,000 unit PO DAILY 02/21/17 [History] Dextran 70/Hypromellose [Artificial Tears] 1 drop BOTH EYES DAILY PRN 02/21/17 [ History] Docusate [Colace] 100 mg PO BID PRN 02/21/17 [History] Furosemide [Lasix] 40 mg PO BID 02/21/17 [History] Gabapentin [Neurontin] 600 mg PO HS 02/21/17 [History] Petrolatum,White [Aloe [place]] 1 appl TP TID PRN 02/21/17 [History] Spironolactone [Aldactone] 12.5 mg PO DAILY 02/21/17 [History] Leuprolide Acetate [Lupron Depot] 22.5 mg IM [id number] 02/22/17 [History] Meclizine HCl [Verticalm] 25 mg PO TID PRN 02/22/17 [History] Acetaminophen [Tylenol] 1,000 mg PO BID PRN 03/27/17 [History] Ferrous Gluconate 324 mg PO BID 03/27/17 [History] Ipratropium/Albuterol Sulfate [Combivent Respimat Inhal [place]] 1 puff IH QID PRN 03/27/17 [History] Venlafaxine XR (24 HR) [Effexor Xr] 37.5 mg PO DAILY 03/27/17 [History] Vit C/E/Zn/Coppr/Lutein/Zeaxan [Preservision [place] 2 Softgel] 1 cap PO BID 03/27 [History] Warfarin [Coumadin] 2.5 mg PO SUTUTH 03/27/17 [History] Warfarin [Coumadin] 5 mg PO MOWEFRSA 03/27/17 [History] levoFLOXacin [Levaquin] 750 mg PO Q48H #2 tablet 04/02/17 [Rx] Allergies/Adverse Reactions: 3 Allergy/AdvReac Type Severity Reaction Status Date / Time Sulfa (Sulfonamide Allergy Rash Verified 02/21/17 21:52 Antibiotics) Date of admission: 03/28/17 06:41 [facility] Consults: 03/28/17 08:23 Consult to Surgery [CONS] Routine Consulting Provider: [facility] Reason for Consult: GI bleed Call Completed: Yes Discharging clinician: Laure Enriquez Anticipated date of discharge: 04/02/17 - Patient Status Disposition: Home Health Service Condition: Fair Functional capacity at discharge: independent ambulation Overall status at discharge: patient is progressing back to baseline - Discharge Instructions Instructions: Gastrointestinal Bleeding (GEN) Follow Up With: [facility] [Outside] (Home based care. They will call patient and set up. Thank you) Additional Instructions: F/up with PCP in 1-2 weeks - Diet and Activity Activity: as per physical therapy, wear oxygen at all times Diet: low fat, low cholesterol, low salt diet, other (renal diet) Hospital course: Mr. Neumann is a 87 year old male with the above medical problems who was admitted with near syncope and generalized weakness. On routine labs, he was noted to have acute anemia with hemoglobin 5.4. He is on long-term anticoagulation with Coumadin and INR was noted to be elevated at 4.6 at admission. Patient received a total of 5 units PRBC and 3 units FFP during this hospitalization and hemoglobin and INR is currently stable. Patient reported melena, Gen. surgery was consulted and patient underwent EGD and colonoscopy. EGD showed small hiatal hernia, sessile nonbleeding gastric polyp, status post resection. No stigmata of bleeding. Colonoscopy completed, showed nonbleeding internal hemorrhoids, diverticulosis and sessile nonbleeding descending colon polyp, pending biopsies. Case discussed with gastroenterology, patient may benefit from outpatient capsule endoscopy. Since there is no focus of active bleeding at this time, anticoagulation has been resumed and he is encouraged to follow up with his primary care provider to monitor INR closely. Patient does have home health nurse checking his INR at least weekly for him. Physical and occupational therapy evaluation recommended home health services, referral for this has been completed. - Time Spent with Patient Total time spent providing and/or coordinating discharge services: Greater than 30 minutes (40 min) - Constitutional Vitals: Temp Pulse Resp BP Pulse Ox 99.1 F 77 16 137/74 96 04/02/17 10:42 04/02/17 10:42 04/02/17 10:42 04/02/17 11:16 04/02/17 10:42 General appearance: Present: cooperative, A&O X 3, answers questions appropriately - Cardiovascular Cardiovascular exam: Present: irregular rhythm, +S1, +S2. Absent: diastolic murmur, gallop, rubs, systolic murmur - VTE Documentation of Mechanical Device: Intermittent pneumatic compression device
--- NOTE | 2017-04-02 12:58 | Physician Discharge Referral ---
Home Health/Hosp Referral Info Transfer to: Home Health Attending Provider: Laure Enriquez Provider in Charge Post Discharge: PCP - Diagnosis (1) GI bleeding Priority: Primary Status: Acute (2) Acute blood loss anemia Priority: Primary Status: Acute (3) Pneumonia Priority: Primary Status: Acute (4) Afib Priority: Secondary Status: Chronic (5) Depression Priority: Secondary Status: Chronic (6) Chronic respiratory failure with hypoxia Priority: Secondary Status: Chronic (7) CKD (chronic kidney disease) stage 3, GFR 30-59 ml/min Priority: Secondary Status: Chronic (8) COPD (chronic obstructive pulmonary disease) Priority: Secondary Status: Chronic (9) CHF (congestive heart failure) Priority: Secondary Status: Chronic - Respiratory Orders Oxygen / L per min (3L/min via [place]) Smoking Cessation: Smoking cessation has been advised. For more information, call the [place] Tobacco Quit Line at 3-221-PDHB-NOW. - Diet/Nutrition Diet/Nutrition Orders: No Added Salt (DAYNA), Renal, Cardiac - Activity Activity Orders: Ambulate - Services Needed Following services are medically necessary services: Nursing, Physical Therapy, Occupational Therapy - Transfer Medications Prescriptions: levoFLOXacin [Levaquin] 750 mg PO Q48H #2 tablet Home Medications: Hydrocodone/Acetaminophen [[place] 5-325 Tablet] 1 tab PO BID PRN 03/26/15 [ History] Ketoconazole 2% CRM [Nizoral Cream] 1 appl TP BID PRN 03/26/15 [History] Melatonin 3 mg PO HS 03/26/15 [History] Omeprazole [PriLOSEC] 20 mg PO HS 03/26/15 [History] Terazosin [Hytrin] 5 mg PO HS 03/26/15 [History] TraZODone 100 mg PO HS 03/26/15 [History] Allopurinol [Zyloprim 100 MG] 200 mg PO DAILY 02/21/17 [History] Carvedilol [Coreg] 6.25 mg PO BID 02/21/17 [History] Cholecalciferol (D-3) [Vitamin D] 1,000 unit PO DAILY 02/21/17 [History] Dextran 70/Hypromellose [Artificial Tears] 1 drop BOTH EYES DAILY PRN 02/21/17 [ History] Docusate [Colace] 100 mg PO BID PRN 02/21/17 [History] Furosemide [Lasix] 40 mg PO BID 02/21/17 [History] Gabapentin [Neurontin] 600 mg PO HS 02/21/17 [History] Petrolatum,White [Aloe [place]] 1 appl TP TID PRN 02/21/17 [History] Spironolactone [Aldactone] 12.5 mg PO DAILY 02/21/17 [History] Leuprolide Acetate [Lupron Depot] 22.5 mg IM [id number] 02/22/17 [History] Meclizine HCl [Verticalm] 25 mg PO TID PRN 02/22/17 [History] Acetaminophen [Tylenol] 1,000 mg PO BID PRN 03/27/17 [History] Ferrous Gluconate 324 mg PO BID 03/27/17 [History] Ipratropium/Albuterol Sulfate [Combivent Respimat Inhal [place]] 1 puff IH QID PRN 03/27/17 [History] Venlafaxine XR (24 HR) [Effexor Xr] 37.5 mg PO DAILY 03/27/17 [History] Vit C/E/Zn/Coppr/Lutein/Zeaxan [Preservision [place] 2 Softgel] 1 cap PO BID 03/27 [History] Warfarin [Coumadin] 2.5 mg PO SUTUTH 03/27/17 [History] Warfarin [Coumadin] 5 mg PO MOWEFRSA 03/27/17 [History] levoFLOXacin [Levaquin] 750 mg PO Q48H #2 tablet 04/02/17 [Rx] Allergies/Adverse Reactions: 3 Allergy/AdvReac Type Severity Reaction Status Date / Time Sulfa (Sulfonamide Allergy Rash Verified 02/21/17 21:52 Antibiotics) Certification: Further, I certify that my clinical findings support that this patient is homebound (i.e. absences from home require considerable and taxing effort and are for medical reasons or christian services or infrequently or short duration when for other reasons) because: Homebound Reason: Patient requires assistance of a person or device to safely leave home, Leaving home requires considerable and taxing effort due to condition Attestation: My signature below is to certify that this patient is under my care and that I, or nurse practitioner, or a physician's assistant elementary teacher working with me, has a face-to -face encounter with this patient.
[2017-04-02] MEDS ORDERED: *HR* Warfarin 2.5 MG TABLET PO SCH (18:00)
== END 2017-04-02 14:20 | disposition home health service (06) | DRG 377 ==
LOC: 3ANU 16:57 → EMEROO 16:57 → 3ANU 21:02 → SUATTDRO 03-28 06:41
PROVIDERS: ADMIT Internal Medicine; ATTEND Internal Medicine
PROC: ENDOEBX (2017-03-29 10:30)
PROC: ENDOCBX (2017-03-31 17:30)